=== PATIENT | male | born 1950 | race Caucasian/White ===

== ENCOUNTER 2023-10-03 12:45 | Outpatient (OUT) | payer MEDICARE, SELFPAY ==
[2023-10-03 13:32] LABS: Basophils Absolute Auto 0.1 10^3/uL (0.0-0.1); Basophils Percent Auto 0.6 % (0.2-2.0); Eosinophils Absolute Auto 0.2 10^3/uL (0.0-0.7); Eosinophils Percent Auto 2.6 % (0.9-7.0); Hematocrit 43.8 % (42.0-54.0); Hemoglobin 13.7 g/dL (14.0-18.0); Immature Granulocytes Abs Auto 0.06 10^3/uL (0.00-0.03); Immature Granulocytes Pct Auto 0.7 % (0.0-0.5); Lymphocytes Percent Auto 22.7 % (20.5-60.0); Mean Corpuscular HGB Conc 31.3 g/dL (29.9-35.2); Mean Corpuscular Hemoglobin 27.9 pg (25.9-34.0); Mean Corpuscular Volume 89.2 fL (80.0-94.0); Mean Platelet Volume 9.9 fL (9.5-13.5); Monocytes Absolute Auto 1.1 10^3/uL (0.3-0.8); Neutrophils Absolute Auto 5.5 10^3/uL (1.4-6.5); Neutrophils Percent Auto 61.4 % (43.0-75.0); Platelet Count 253 10^3/uL (150-450); Red Blood Count 4.91 10^6/uL (4.70-6.10); Red Cell Distribution Width 14.4 % (11.0-15.0); White Blood Count 8.9 10^3/uL (4.0-11.0)
[2023-10-03 13:36] LABS: Microalbumin Urine Random <1.3 mg/dL (<=30.0)
[2023-10-03 14:09] LABS: Alanine Aminotransferase 43 U/L (16-63); Albumin Globulin Ratio 0.9; Albumin Level 3.4 g/dL (3.4-5.0); Alkaline Phosphatase 66 U/L (46-116); Anion Gap 9.5; Aspartate Amino Transferase 30 U/L (15-37); BUN Creatinine Ratio 8.3; Bilirubin Direct 0.1 mg/dL (0.0-0.2); Bilirubin Total 0.3 mg/dL (0.2-1.0); Calcium 9.3 mg/dL (8.5-10.1); Carbon Dioxide 32.5 mmol/L (21.0-32.0); Chloride 101 mmol/L (98-107); Chol HDL Ratio 2.8; Cholesterol 141 mg/dL (<=200); Estimated GFR (African America >60 (>=60); Estimated GFR (Non-African Ame >60 (>=60); Glucose 117 mg/dL (74-106); HDL Cholesterol 50 mg/dL (40-60); LDL Cholesterol Calculated 67.8 mg/dL; Sodium 139 mmol/L (136-145); Thyroid Stimulating Hormone 0.787 uIU/mL (0.358-3.740); Total Protein 7.4 g/dL (6.4-8.2); Triglycerides 116 mg/dL (<=150); VLDL CHOLESTEROL 23.2 mg/dL
[2023-10-03 14:14] LABS: Prostate Specific Antigen Scrn 3.11 ng/mL (<=4.00)
[2023-10-03 14:20] LABS: Estimated Average Glucose 169 mg/dL; Glycohemoglobin A1C 7.5 % (4.5-6.2)
== END 2023-10-03 12:46 | disposition home or self-care (01) ==
PROVIDERS: PCP Family Medicine; Visit Provider Family Medicine
DX: E11.9 Type 2 diabetes mellitus without complications (principal); I10 Essential (primary) hypertension; Z51.81 Encounter for therapeutic drug level monitoring; E66.01 Morbid (severe) obesity due to excess calories; E78.5 Hyperlipidemia, unspecified; Z12.5 Encounter for screening for malignant neoplasm of prostate
CPT/HCPCS: 36415; 80048; 80061; 80076; 82043; 83036; 84443; 85025; G0103

== ENCOUNTER 2024-06-19 13:48 | Outpatient (OUT) | payer MEDICARE, SELFPAY ==
--- OUTSIDE RECORDS SUMMARY | 2024-06-19 14:09 | XMS_ITS | CCD ---
Author Organization [facility] Care Team Providers Care Regional Environmental Manager Name Role Phone MARIE, DR BRITTNI Lew Attending Unavailable NADERER, DR BRITTNI Lew Admitting Unavailable NADERER, DR BRITTNI Lew Primary Care Unavailable NADERER, DR BRITTNI Lew Consulting Unavailable NADERER, DR RBITTNI Lew Admitting Unavailable NADERER, DR BRITTNI Lew Primary Care Unavailable NADERER, DR BRITTNI Lew Consulting Unavailable NADERER, DR BRITTNI Lew Attending Unavailable RUSHER, ROMAN Lew Attending Unavailable RUSHER, ROMAN Lew Attending Unavailable RUSHER, ROMAN Lew Attending Unavailable NADERER, BRITTNI Attending Unavailable RUSHER, ROMAN Lew Attending Unavailable Problems Active Problems Problem Classification Problem Date Documented Da te Episodic/Chronic Diabetes mellitus with complications (4 sources) Type 2 diabetes mellitus with hyperglycemia; Translations: [TYPE 2 DM W/HYPERGLYCEMIA] Onset: 09-23-2022 Chronic Disorders of lipid metabolism (1 source) Hyperlipidemia, unspecified; Translations: [HYPERLIPIDEMIA UNSPECIFIED] Onset: 10-15-2021 Chronic Essential hypertension (1 source) Essential (primary) hypertension; Translations: [ESSENTIAL PRIMARY HYPERTENSION] Onset: 10-15-2021 Chronic Past or Other Problems Problem Classification Problem Date Documented Da te Episodic/Chronic Other aftercare (1 source) 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; Translations: [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 DEVELOPER CURRENT DRUG THERAPY] Onset: 10-15-2021 Episodic Other screening for suspected conditions (not mental disorders or infectious disease) (1 source) Encounter for screening for malignant neoplasm of prostate; Translations: [ENC SCREEN MALIG NEOPLASM PROSTATE] Onset: 10-15-2021 Episodic Results Test Name Value Interpretation Reference Range Facility GLYCOHEMOGLOBIN A1Con 2022 ADA RECOMMENDATION SEE BELOW Normal [facility] Comment on above: Result Comment: ADA RECOMMENDED LIMIT 4.0 - 6.0 ADA THERAPEUTIC TARGET < 7.0 ACTION SUGGESTED > 7.0 Performed By: #### A 1C #### [facility] [address] [place] [address] Dr. Estephanie Serrano Glucose [Mass/Vol] 148 mg/dL Normal [facility] Comment on above: Performed By: #### A 1C #### [facility] [address] [place] [address] Dr. Estephanie Serrano HbA1c (Bld) [Mass fraction] 6.8 % Critically high 4.5-6.2 [facility] Comment on above: Performed By: #### A 1C #### [facility] [address] [place] [address] Dr. Estephanie Serrano CBC AUTO DIFFon 10-13-2021 BASO # 0.0 103/ul Normal 0.0-0.1 [facility] Comment on above: Performed By: #### C BC #### [facility] [address] [place] [address] Dr. Estephanie Serrano Basophils/100 WBC (Bld) 0.4 % Normal 0.2-2.0 [facility] Comment on above: Performed By: #### C BC #### [facility] [address] [place] [address] Dr. Estephanie Serrano EO # 0.2 103/ul Normal 0.0-0.7 [facility] Comment on above: Performed By: #### C BC #### [facility] [address] [place] [address] Dr. Estephanie Serrano Eosinophils/100 WBC (Bld) 2.9 % Normal 0.9-7.0 [facility] Comment on above: Performed By: #### C BC #### [facility] [address] [place] [address] Dr. Estephanie Serrano Erythrocyte distribution width (RBC) [Ratio] 14.3 % Normal 11.0-15.0 [facility] Comment on above: Performed By: #### C BC #### [facility] [address] [place] [address] Dr. Estephanie Serrano Hematocrit (Bld) [Volume fraction] 44.8 % Normal 42.0-54.0 [facility] Comment on above: Performed By: #### C BC #### [facility] [address] [address] [address] Estephanie Serrano Hemoglobin (Bld) [Mass/Vol] 14.0 g/dL Normal 14.0-18.0 [facility] Comment on above: Performed By: #### C BC #### [facility] [address] [place] [address] Dr. Estephanie Serrano IG # 0.04 10e3/ul Critically high 0.00-0.03 [facility] Comment on above: Performed By: #### C BC #### [facility] [address] [place] [address] Dr. Estephanie Serrano IG % 0.6 % Critically high 0.0-0.5 [facility] Comment on above: Performed By: #### C BC #### [facility] [address] [place] [address] Dr. Estephanie Serrano LYMPH # 1.8 103/ul Normal 1.2-3.8 [facility] Comment on above: Performed By: #### C BC #### [facility] [address] [place] [address] Dr. Estephanie Serrano Lymphocytes/100 WBC (Bld) 26.4 % Normal 20.5-60.0 [facility] Comment on above: Performed By: #### C BC #### [facility] [address] [place] [address] Dr. Estephanie Serrano MANUAL DIFF REQ NO Normal [facility] Comment on above: Performed By: #### C BC #### [facility] [address] [place] [address] Dr. Estephanie Serrano MCH (RBC) [Entitic mass] 28.5 pg Normal 25.9-34.0 [facility] Comment on above: Performed By: #### C BC #### [facility] [address] [place] [address] Dr. Estephanie Serrano MCHC (RBC) [Mass/Vol] 31.3 g/dL Normal 29.9-35.2 [facility] Comment on above: Performed By: #### C BC #### [facility] [address] [address] [address] Estephanie Serrano MCV (RBC) [Entitic vol] 91.1 fL Normal 80.0-94.0 [facility] Comment on above: Performed By: #### C BC #### [facility] [address] [address] [address] Estephanie Serrano MONO # 0.8 103/ul Normal 0.3-0.8 [facility] Comment on above: Performed By: #### C BC #### [facility] [address] [address] [address] Estephanie Serrano Monocytes/100 WBC (Bld) 10.8 % Normal 1.7-12.0 [facility] Comment on above: Performed By: #### C BC #### [facility] [address] [place] [address] Dr. Estephanie Serrano NEUT # 4.1 103/ul Normal 1.4-6.5 [facility] Comment on above: Performed By: #### C BC #### [facility] [address] [place] [address] Dr. Estephanie Serrano Neutrophils/100 WBC (Bld) 58.9 % Normal 43.0-75.0 [facility] Comment on above: Performed By: #### C BC #### [facility] [address] [place] [address] Dr. Estephanie Serrano Platelet mean volume (Bld) [Entitic vol] 11.8 fL Normal 9.5-13.5 [facility] Comment on above: Performed By: #### C BC #### [facility] [address] [place] [address] Dr. Estephanie Serrano PLT 218 103/ul Normal 150-450 [facility] Comment on above: Performed By: #### C BC #### [facility] [address] [place] [address] Dr. Estephanie Serrano RBC 4.92 106/ul Normal 4.70-6.10 [facility] Comment on above: Performed By: #### C BC #### [facility] [address] [place] [address] Dr. Estehpanie Serrano WBC 7.0 103/ul Normal 4.0-11.0 [facility] Comment on above: Performed By: #### C BC #### [facility] [address] [address] [address] Estephanie Serrano GLYCOHEMOGLOBIN A1Con 2021 ADA RECOMMENDATION ADA THERAPEUTIC TARGET 6.0 - 7.0 ACTION SUGGESTED > 7.0 Normal [facility] Comment on above: Performed By: #### A 1C #### [facility] [address] [address] [address] Estephanie Serrano Glucose [Mass/Vol] 169 mg/dL Normal [facility] Comment on above: Performed By: #### A 1C #### [facility] [address] [address] [address] Estephanie Serrano HbA1c (Bld) [Mass fraction] 7.5 % Critically high <=6.0 [facility] Comment on above: Performed By: #### A 1C #### [facility] [address] [address] [address] Estephanie Serrano LIPID PROFILEon 10-13-2021 CHOL-HDL RATIO NORM SEE BELOW Normal [facility] Comment on above: Result Comment: 3.3 - 4.4 LOW RISK 4.4 - 7.1 AVERAGE RISK 7.1 - 11.0 MODERATE RISK >11.0 HIGH RISK Performed By: #### L IPID, TSH, LIVER, BMP #### [facility] [address] [address] [address] Estephanie Serrano Cholesterol [Mass/Vol] 124 mg/dL Normal <=200 [facility] Comment on above: Performed By: #### L IPID, TSH, LIVER, BMP #### [facility] [address] [address] [address] Estephanie Serrano Cholesterol in HDL [Mass/Vol] 37 mg/dL Normal [facility] Comment on above: Performed By: #### L IPID, TSH, LIVER, BMP #### [facility] [address] [address] [address] Estephanie Serrano Cholesterol in LDL [Mass/Vol] 61.0 mg/dL Normal [facility] Comment on above: Performed By: #### L IPID, TSH, LIVER, BMP #### [facility] [address] [place] [address] Dr. Estephanie Serrano Cholesterol.total/Ch olesterol in HDL [Mass ratio] 3.4 {ratio} Normal [facility] Comment on above: Performed By: #### L IPID, TSH, LIVER, BMP #### [facility] [address] [address] [address] Estephanie Serrano HDL NORMAL > or = 60 mg/dl - LOW CARDIOVASCULAR RISK <40 mg/dl - HIGH CARDIOVASCULAR RISK Normal [facility] Comment on above: Performed By: #### L IPID, TSH, LIVER, BMP #### [facility] [address] [place] [address] Dr. Estephanie Serrano LDL CALC NORMAL SEE BELOW Normal [facility] Comment on above: Result Comment: <100 mg/dl OPTIMAL 100 - 129 mg/dl NEAR OR ABOVE OPTIMAL 130 - 159 mg/dl BORDERLINE HIGH 160 - 189 mg/dl HIGH >190 mg/dl VERY HIGH Performed By: #### L IPID, TSH, LIVER, BMP #### [facility] [address] [place] [address] Dr. Estephanie Serrano Triglyceride [Mass/Vol] 130 mg/dL Normal <=150 [facility] Comment on above: Performed By: #### L IPID, TSH, LIVER, BMP #### [facility] [address] [place] [address] Dr. Estephanie Serrano VLDL CALC 26.0 mg/dL Normal [facility] Comment on above: Performed By: #### L IPID, TSH, LIVER, BMP #### [facility] [address] [address] [address] Estephanie Serrano LIVER PROFILEon 10-13-2021 Albumin [Mass/Vol] 3.6 g/dL Normal 3.5-5.0 [facility] Comment on above: Performed By: #### L IPID, TSH, LIVER, BMP #### [facility] [address] [place] [address] Dr. Estephanie Serrano Albumin/Globulin [Mass ratio] 1.0 {ratio} Normal [facility] Comment on above: Performed By: #### L IPID, TSH, LIVER, BMP #### [facility] [address] [address] [address] Estephanie Serrano ALP [Catalytic activity/Vol] 67 U/L Normal 38-126 [facility] Comment on above: Performed By: #### L IPID, TSH, LIVER, BMP #### [facility] [address] [address] [address] Estephanie Serrano ALT [Catalytic activity/Vol] 36 U/L Normal 21-72 [facility] Comment on above: Performed By: #### L IPID, TSH, LIVER, BMP #### [facility] [address] [place] [address] Dr. Estephanie Serrano AST [Catalytic activity/Vol] 30 U/L Normal 17-59 [facility] Comment on above: Performed By: #### L IPID, TSH, LIVER, BMP #### [facility] [address] [place] [address] Dr. Estephanie Serrano BILI, CONJUGATED 0.1 mg/dL Normal 0.0-0.3 [facility] Comment on above: Performed By: #### L IPID, TSH, LIVER, BMP #### [facility] [address] [place] [address] Dr. Estephanie Serrano Bilirubin [Mass/Vol] 0.4 mg/dL Normal 0.2-1.3 [facility] Comment on above: Performed By: #### L IPID, TSH, LIVER, BMP #### [facility] [address] [place] [address] Dr. Estephanie Serrano Globulin (S) [Mass/Vol] 3.5 g/dL Normal [facility] Comment on above: Performed By: #### L IPID, TSH, LIVER, BMP #### [facility] [address] [place] [address] Dr. Estepahnie Serrano Protein [Mass/Vol] 7.1 g/dL Normal 6.1-8.2 [facility] Comment on above: Performed By: #### L IPID, TSH, LIVER, BMP #### [facility] [address] [place] [address] Dr. Estephanie Serrano MICROALBUMIN, RAND URon 02-0 mALB 1.6 mg/L Normal <=30.0 [facility] Comment on above: Performed By: #### M ALBR #### [facility] [address] [address] [address] Estephanie Serrano PROF CHEM 8 (BAS METB)on Anion gap [Moles/Vol] 11.2 mmol/L Normal [facility] Comment on above: Performed By: #### L IPID, TSH, LIVER, BMP #### [facility] [address] [place] [address] Dr. Estephanie Serrano Calcium [Mass/Vol] 9.1 mg/dL Normal 8.4-10.2 [facility] Comment on above: Performed By: #### L IPID, TSH, LIVER, BMP #### [facility] [address] [place] [address] Dr. Estephanie Serrano Chloride [Moles/Vol] 99 mmol/L Normal 98-107 [facility] Comment on above: Performed By: #### L IPID, TSH, LIVER, BMP #### [facility] [address] [place] [address] Dr. Estephanie Serrano CO2 [Moles/Vol] 29.9 mmol/L Normal 22.0-30.0 [facility] Comment on above: Performed By: #### L IPID, TSH, LIVER, BMP #### [facility] [address] [place] [address] Dr. Estephanie Serrano Creatinine [Mass/Vol] 0.83 mg/dL Normal 0.66-1.25 [facility] Comment on above: Performed By: #### L IPID, TSH, LIVER, BMP #### [facility] [address] [place] [address] Dr. Estephanie Serrano EGFR-AF RWANDAN >60 Normal >=60 [facility] Comment on above: Performed By: #### L IPID, TSH, LIVER, BMP #### [facility] [address] [address] [address] Estephanie Serrano EGFR-NON AF RWANDAN >60 Normal >=60 [facility] Comment on above: Performed By: #### L IPID, TSH, LIVER, BMP #### [facility] [address] [address] [address] Estephanie Serrano Glucose [Mass/Vol] 219 mg/dL Critically high 74-106 [facility] Comment on above: Performed By: #### L IPID, TSH, LIVER, BMP #### [facility] [address] [address] [address] Estephanie Serrano Potassium [Moles/Vol] 4.1 mmol/L Normal 3.4-5.0 [facility] Comment on above: Performed By: #### L IPID, TSH, LIVER, BMP #### [facility] [address] [place] [address] Dr. Estephanie Serrano Sodium [Moles/Vol] 136 mmol/L Critically low 137-145 [facility] Comment on above: Performed By: #### L IPID, TSH, LIVER, BMP #### [facility] [address] [address] [address] Estephanie Serrano Urea nitrogen [Mass/Vol] 6.0 mg/dL Critically low 9.0-20.0 [facility] Comment on above: Performed By: #### L IPID, TSH, LIVER, BMP #### [facility] [address] [place] [address] Dr. Estephanie Serrano Urea nitrogen/Creatinine [Mass ratio] 7.2 mg/mg Normal [facility] Comment on above: Performed By: #### L IPID, TSH, LIVER, BMP #### [facility] [address] [place] [address] Dr. Estephanie Serrano TSHon 10-13-2021 TSH 1.390 uIU/mL Normal 0.470-4.680 [facility] Comment on above: Performed By: #### L IPID, TSH, LIVER, BMP #### [facility] [address] [place] [address] Dr. Estephanie Serrano TSH RANGE SEE BELOW Normal [facility] Comment on above: Result Comment: <0.3 4 UIU/ml HYPERTHYROID 0.34-5.60 UIU/ml EUTHYROID >5.60 UIU/ml HYPOTHYROID Performed By: #### L IPID, TSH, LIVER, BMP #### [facility] [address] [place] [address] Dr. Estephanie eSrrano Basic Metabolic Panelon 11-0 Calcium [Mass/Vol] 8.8 mg/dL Normal 8.2-10.2 [facility] Comment on above: Performed By: #### C BC, BMP, HS TROP #### [facility] [address] [place] [address] [place] Chloride [Moles/Vol] 100 mmol/L Normal 95-114 [facility] Comment on above: Performed By: #### C BC, BMP, HS TROP #### [facility] [address] [place] [address] [place] CO2 [Moles/Vol] 25.8 mmol/L Normal 22.0-30.0 [facility] Comment on above: Performed By: #### C BC, BMP, HS TROP #### [facility] [address] [place] [address] [place] Creatinine [Mass/Vol] 0.74 mg/dL Normal 0.64-1.27 [facility] Comment on above: Performed By: #### C BC, BMP, HS TROP #### [facility] [address] [place] [address] [place] Creatinine Clr Calc Pharmacy 120.85 Normal [facility] Comment on above: Result Comment: PERF ORMED BY: [place] [address] PATHOLOGIST PRINTING AGENT DRU DEVINE M.D. Performed By: #### C BC, BMP, HS TROP #### [facility] [address] [place] [address] [place] Estimated GFR ( Diann > 60 Normal [facility] Comment on above: Result Comment: GFR estimated reference range: According to KDOQI guidelines, <60 ml/min/1.73m2 is sufficient to diagnose a patient with chronic kidney disease. Performed By: #### C BC, BMP, HS TROP #### [facility] [address] Estimated GFR (Non- Am > 60 Normal [facility] Comment on above: Performed By: #### C BC, BMP, HS TROP #### [facility] [address] Glucose [Mass/Vol] 148 mg/dL High 70-100 [facility] Comment on above: Result Comment: [facility] Glucose Reference Range is dependent on time and content of last meal. Glucose of more than 200 mg/dL in a nonstressed, ambulatory subject supports the diagnosis of Diabetes Mellitus. ADA recommended reference range Performed By: #### C BC, BMP, HS TROP #### [facility] [address] Potassium [Moles/Vol] 3.5 mmol/L Normal 3.5-5.1 [facility] Comment on above: Performed By: #### C BC, BMP, HS TROP #### [facility] [address] Sodium [Moles/Vol] 136 mmol/L Normal 136-146 [facility] Comment on above: Performed By: #### C BC, BMP, HS TROP #### [facility] [address] Urea nitrogen [Mass/Vol] 5 mg/dL Low 9-23 [facility] Comment on above: Performed By: #### C BC, BMP, HS TROP #### [facility] [address] COVID-19 Antigenon 1 COVID-19 Antigen Results called at 2104 on 07/13/21 Healthcare Worker?: N Delia Reference Delia Reference Negative Delia Blank COVID19 Pos Results Positive results will only be called to COVID19 Det Results Providers for the following groups of patients: COVID19 Pos Results Pre-Surgical Testing, Emergency Room, and Inpatients. Delia Blank SARS-CoV+SARS-CoV-2 (COVID-19) Ag [Presence] in Respiratory specimen by Rapid immunoassay Positive for SARS Antigen by JESSIE Delia Disclaimer The Delia SARS Antigen JESSIE does not differentiate Delia Disclaimer between SARS-CoV and SARS-CoV-2. COVID19 Blank Space Delia Disclaimer This test was developed and its performance Delia Disclaimer characteristic determined by [employer] and Delia Disclaimer validated at [facility]. This Delia Disclaimer test has not been FDA cleared or approved. This Delia Disclaimer test has been authorized by FDA under an Emergency Use Delia Disclaimer Authorization (EUA). This test has been validated Delia Disclaimer in accordance with the FDA's Guidance Document (Policy Delia Disclaimer for Diagnostics Testing in Laboratories Certified to Delia Disclaimer Perform High Complexity Testing under CLIA prior to Delia Disclaimer Emergency Use Authorization for Coronavirus Delia Disclaimer during the Public Health Emergency) Delia Disclaimer issued on December 13, 2019. This test is only authorized Delia Disclaimer for the duration of time the declaration that Delia Disclaimer circumstances exist justifying the authorization of Delia Disclaimer the emergency use of in vitro diagnostic tests for Delia Disclaimer detection of SARS-CoV-2 virus and/or diagnosis of Delia Disclaimer COVID-19 infection under section 564(b)(1) of the Delia Disclaimer Act, 21 U.S.C. 360bbb-3(b)(1), unless the Delia Disclaimer authorization is terminated or revoked sooner. PERFORMED BY: [place] [address] PATHOLOGIST PRINTING AGENT DRU DEVINE M.D. Normal [facility] Comment on above: Performed By: #### S EMERSON CHURCHID-19 DELIA #### [address] Complete Blood Count Auto Di ffon 07-13-2021 Basophils (Bld) [#/Vol] 0.0 10*3/uL Normal 0.0-0.2 [facility] Comment on above: Result Comment: PERF ORMED BY: [place] [address] PATHOLOGIST PRINTING AGENT DRU DEVINE M.D. Performed By: #### C BC, BMP, HS TROP #### [address] Basophils/100 WBC (Bld) 0.6 % Normal . [facility] Comment on above: Performed By: #### C BC, BMP, HS TROP #### [facility] [address] [place] [address] Eosinophils (Bld) [#/Vol] 0.1 10*3/uL Normal 0.0-0.45 [facility] Comment on above: Performed By: #### C BC, BMP, HS TROP #### [address] Eosinophils/100 WBC (Bld) 0.8 % Normal . [facility] Comment on above: Performed By: #### C BC, BMP, HS TROP #### [facility] [address] [place] [address] Erythrocyte distribution width (RBC) [Ratio] 14.5 % Normal 12.0-14.8 [facility] Comment on above: Performed By: #### C BC, BMP, HS TROP #### [facility] [address] [place] [address] Hematocrit (Bld) [Volume fraction] 42.0 % Normal 38.8-50.0 [facility] Comment on above: Performed By: #### C BC, BMP, HS TROP #### [facility] [address] [place] [address] [place] Hemoglobin (Bld) [Mass/Vol] 14.0 g/dL Normal 13.0-17.0 [facility] Comment on above: Performed By: #### C BC, BMP, HS TROP #### [facility] [address] Lymphocytes (Bld) [#/Vol] 0.7 10*3/uL Low 1.00-4.8 [facility] Comment on above: Performed By: #### C BC, BMP, HS TROP #### [facility] [address] Lymphocytes/100 WBC (Bld) 9.9 % Normal . [facility] Comment on above: Performed By: #### C BC, BMP, HS TROP #### [facility] [address] [place] [address] [place] MCH (RBC) [Entitic mass] 28.7 pg Normal 27.5-35.2 [facility] Comment on above: Performed By: #### C BC, BMP, HS TROP #### [facility] [address] [place] [address] [place] MCV (RBC) [Entitic vol] 86.0 fL Normal 83.5-101 [facility] Comment on above: Performed By: #### C BC, BMP, HS TROP #### [facility] [address] Mean Corpuscular HGB Conc 33.4 g/dL Normal 32.5-35.6 [facility] Comment on above: Performed By: #### C BC, BMP, HS TROP #### [facility] [address] [place] [address] [place] Monocytes (Bld) [#/Vol] 1.1 10*3/uL High 0.0-0.8 [facility] Comment on above: Performed By: #### C BC, BMP, HS TROP #### [facility] [address] [place] [address] [place] Monocytes/100 WBC (Bld) 16.1 % Normal . [facility] Comment on above: Performed By: #### C BC, BMP, HS TROP #### [facility] [address] [place] [address] [place] Neutrophils (Bld) [#/Vol] 5.0 10*3/uL Normal 1.8-7.7 [facility] Comment on above: Performed By: #### C BC, BMP, HS TROP #### [facility] [address] Neutrophils/100 WBC (Bld) 72.6 % Normal . [facility] Comment on above: Performed By: #### C BC, BMP, HS TROP #### [facility] [address] [place] [address] [place] Nucleated RBC/100 WBC (Bld) [Ratio] 0.1 % Normal 0-0.5 [facility] Comment on above: Performed By: #### C BC, BMP, HS TROP #### [facility] [address] [place] [address] Platelet mean volume (Bld) [Entitic vol] 9.0 fL Normal 6.6-10.1 [facility] Comment on above: Performed By: #### C BC, BMP, HS TROP #### [facility] [address] [place] [address] [place] Platelets (Bld) [#/Vol] 157 10*3/uL Normal 150-450 [facility] Comment on above: Performed By: #### C BC, BMP, HS TROP #### [facility] [address] [place] [address] [place] RBC (Bld) [#/Vol] 4.88 10*6/uL Normal 3.90-5.60 [facility] Comment on above: Performed By: #### C BC, BMP, HS TROP #### [facility] [address] [place] [address] [place] WBC (Bld) [#/Vol] 6.9 10*3/uL Normal 4.5-11.0 [facility] Comment on above: Performed By: #### C BC, BMP, HS TROP #### [facility] [address] [place], [place] [id number] [facility] D-Dimer High Sensitivityon 1 09-12-2020 D-Dimer High Sensitivity < 200 Normal 0-243 [facility] Comment on above: Result Comment: The reference range for D-dimer is <243 ng/mL D-dimer units. D-dimer results must be used in conjunction with a clinical pretest probability (PTP) assessment model for deep vein thrombosis (DVT) and pulmonary embolism (PE). Results <230 ng/mL d-dimer units can be used as a negative predictor in patients with low or moderate probability for DVT/PE. Results above the exclusion threshold of 230 ng/ml D-dimer units for DVT/PE may indicate the need for further diagnostic testing. D-Dimer can be increased in hospitalized patients due to co-morbid conditions. PERFORMED BY: [place] [address] PATHOLOGIST [employer] DRU DEVINE M.D. Performed By: #### D DIMER #### [place] [id number] [facility] ECG 12 lead ECGon 07-13-2021 ECG 12 lead ECG [facility] [address] [place] [address] Electrocardiograph Report Signed Patient: Mohit Arboleda MR#: [id number] : 1950 Acct:[id number] Age/Sex: 70 / M ADM Date: 07/13/21 Loc: ER Room: Type: [facility] ER Attending Dr: Ordering Provider: Francisco Jerez DO Date of Service: 07/13/2110/02/2013 ECG/ECG 12 lead ECG: Shortness of Breath/Dyspnea Copies to: Test Reason : Blood Pressure : 133/073 mmHG Vent. Rate : 119 BPM Atrial Rate : 119 BPM P-R Int : 152 ms QRS Dur : 084 ms QT Int : 326 ms P-R-T Axes : 059 072 060 degrees QTc Int : 458 ms Sinus tachycardia Low voltage QRS Confirmed by Francisco Jerez DO ([id number]) on 07/13/2021 10:18:29 PM Referred By: Electronically Signed By:Francisco Jerez DO Transcribed By: MUS Signed By Francisco Jerez DO 07/13 2218 Normal [facility] Delia Ag Positiveon 07-13-20 21 Delia Ag Positive Positive Critically abnormal Negative [facility] Comment on above: Result Comment: This is a duplicate Delia SARS Antigen (JESSIE) result to be used for statistical tracking purpose only. PERFORMED BY: [place] [address] PATHOLOGIST [employer] DRU DEVINE M.D. Performed By: #### S OFIAPOS, COVID-19 DELIA #### [address] Troponin I High Sensitivityo n 07-13-2021 Troponin I High Sensitivity 5 pg/mL Normal 0-20 [facility] Comment on above: Result Comment: PERF ORMED BY: [place] [address] PATHOLOGIST [employer] DRU DEVINE M.D. Performed By: #### C BC, BMP, HS TROP #### [place] [id number] [facility] XR chest 1V portableon 07-13 XR chest 1V portable [facility] [address] [place] [address] XRay Report Signed Patient: Mohit Arboleda MR#: [id number] : 1950 Acct:[id number] Age/Sex: 70 / M ADM Date: 07/13/21 Loc: ER Room: Type: [facility] ER Attending Dr: Ordering Provider: Francisco Jerez DO Date of Service: 07/13/21 XR/XR chest 1V portable: Shortness of Breath/Dyspnea Copies to: Francisco Jerez DO Chest 07/13/2021. CLINICAL DATA: Shortness of breath. FINDINGS: A single portable frontal view of the chest was obtained. No prior study is available for comparison. The cardiac silhouette is normal in size. The pulmonary vasculature is within normal limits. The lungs demonstrate mild chronic-appearing interstitial changes. No pulmonary consolidation or collapse is identified. No pneumothorax or pleural effusion is seen. XR/XR chest 1V portable IMPRESSION: Mild chronic-appearing interstitial changes. No acute cardiopulmonary disease. Impression dictated by: Elver Acosta Jr., M.D.07/13/2021 9:38 PM Dictation Location: [place] [address] Transcribed By: [facility] 07/13/212137 Dictated By: Elver Acosta Jr, MD 07/13/212136 Signed By: 07/13/212137 [facility] Encounters Encounter Date Encounter Type Care Provider Facility Start: 05-29-2024 End: 05-29-2024 ambulatory ROMAN KUMAR Not Available Start: 05-16-2024 End: 05-16-2024 ambulatory BRITTNI SALAZAR Not Available Start: 02-20-2024 End: 02-20-2024 ambulatory ROMAN Lew RUSHER Not Available Start: 11-10-2023 End: 11-10-2023 ambulatory ROMAN Lew RUSHER Not Available Start: 08-03-2023 End: 08-03-2023 ambulatory ROMAN Lew RUSHER Not Available Start: 09-23-2022 End: 09-24-[address] BRITTNI SALAZAR Facility:[facility] Start: 10-13-2021 End: 10-14-[address] BRITTNI SALAZAR Facility:[facility] Procedures Date Procedure Procedure Detail Performing Clinician Start: 10-13-[address] BRITTNI HARKINS Comment on above: Performed By: #### P [facility] #### [facility] [address] [place] [address] Dr. Estephanie Serrano Payers Date Payer Category Payer Unknown [id number] 1950 Unknown [id number] 2.16.84 [id number] 1950 Unknown [id number] 2.16.84 [id number] 1950 Unknown [id number] 2.16.84 [id number] 1950 Unknown [id number] 2.16.84 [id number] 1950 Unknown [id number] 2.16.84 [id number] 1950 Unknown [id number] 2.16.84 [id number] 1950 Unknown [id number] Summary Purpose Family History No Family History Records FoundNo Family History Records FoundNo Family History Records Found Advance Directives No Advanced Directives Records FoundNo Advanced Directives Records FoundNo Advanced Directives Records Found Additional Source Comments (unrecognized sect ion and content) No Status Records FoundNo Status Records FoundNo Status Records Found INFORMATION SOURCE (unrecogn ized section and content) DATE CREATED AUTHOR 10/06/2021 [facility] DATE CREATED AUTHOR AUTHOR'S ORGANIZ ATION 10/05/2022 [facility] DATE CREATED AUTHOR AUTHOR'S ORGANIZ ATION 05/31/2024 [facility] FOR RECORDS PERTAINING TO PATIENTS WHO ARE OR HAVE BEEN ENROLLED IN A CHEMICAL DEPENDENCY/SUBSTANCEABUSE PROGRAM, SOME INFORMATION MAY BE OMITTED. This clinical summary was aggregated from multiple sources. Caution should be exercised in using it in the provision of clinical care. This summary normalizes information from multiple sources, and as a consequence, information in this document may materially change the coding, format and clinical context of patient data. In addition, data may be omitted in some cases. CLINICAL DECISIONS SHOULD BE BASED ON THE PRIMARY CLINICAL RECORDS. [facility] [employer] [facility]. provides no warranty or guarantee of the accuracy or completeness of information in this document.
[2024-06-19 14:47] LABS: Estimated Average Glucose 186 mg/dL; Glycohemoglobin A1C 8.1 % (4.5-6.2)
== END 2024-06-19 13:49 | disposition home or self-care (01) ==
LOC: LAB 13:49
PROVIDERS: PCP Family Medicine; Visit Provider Family Medicine
DX: E11.65 Type 2 diabetes mellitus with hyperglycemia (principal)
CPT/HCPCS: 36415; 83036

== ENCOUNTER 2025-05-10 08:32 | Outpatient (OUT) | payer MEDICARE, SELFPAY ==
--- OUTSIDE RECORDS SUMMARY | 2025-05-10 08:37 | XMS_ITS | CCD ---
Author Organization [facility] Care Team Providers Care [employer] Programmer Name Role Phone DR LJ SALAZAR Attending Unavailable NADERER, DR LJ Lew Admitting Unavailable NADERER, DR LJ Lew Primary Care Unavailable MARIE, DR LJ Lew Consulting Unavailable NADERER, DR LJ Lew Admitting Unavailable NADERER, DR LJ Lew Primary Care Unavailable MARIE, DR LJ Lew Consulting Unavailable MARIE, DR LJ Lew Attending Unavailable Lj Salazar MD Primary Care Provider [phone] MARKELL BAILON Attending Unavailable MARIE, LJ Referring Unavailable MARIE, LJ Primary Care Unavailable Lj Salazar MD Unavailable Lj Salazar MD Primary Care Provider [phone] FABY DRAPER Admitting Unavailable FABY DRAPER Attending Unavailable MARIE, LJ Primary Care Unavailable ARCENIO PEÑALOZA Attending Unavailable NADERER, LJ Attending Unavailable NADERER, LJ Attending Unavailable RUSARCENIO PEREYRA Attending Unavailable NADERER, LJ Attending Unavailable RUSHER, ARCENIO Lew Attending Unavailable RUSHERARCENOI Attending Unavailable Medications Current Medications Medication Drug Class(es) Dates Sig (Normalized) Sig (Original) [id number] 200 actuat albuterol 0.09 mg/actuat metered dose inhaler (20 sources) beta2-Adrenergic Agonist take 2 puff(s) by inhalation every four hours for wheezing albuterol HFA 90 mcg/act inhaler Inhale 2 puffs every 4 (four) hours if needed for wheezing Active glipiZIDE 10 mg oral tablet (20 sources) Sulfonylurea Start: 04-24-2024 take 1 tablet by mouth twice daily glipiZIDE (Glucotrol) 10 MG tablet Indications: Type 2 diabetes mellitus with hyperglycemia, without long-term current use of insulin (HCC) TAKE 1 TABLET BY MOUTH TWICE DAILY 180 tablet 3 04/24/2024 Active lisinopril 20 mg oral tablet (20 sources) Angiotensin Converting Enzyme Inhibitor Start: 04-24-2024 take 1 tablet by mouth once daily lisinopril 20 MG tablet Indications: Benign essential hypertension TAKE 1 TABLET BY MOUTH DAILY 90 tablet 3 04/24/2024 Active 24 hr metFORMIN hydrochloride 500 mg extended release oral tablet (20 sources) Biguanide Start: 04-24-2024 take 2 tablets by mouth twice daily metFORMIN XR (Glucophage-XR) 500 MG 24 hr tablet Indications: Type 2 diabetes mellitus with hyperglycemia, without long-term current use of insulin (HCC) TAKE 2 TABLETS BY MOUTH TWICE DAILY 360 tablet 3 04/24/2024 Active take 1 tablet by mouth at mealti me metFORMIN (Glucophage) 500 MG tablet Take 500 mg by mouth in the morning. Take with meals. Active omeprazole 40 mg delayed release oral capsule (14 sources) Proton Pump Inhibitor Start: 10-29-2024 End: 10-29-2025 take 1 capsule by mouth in the morning omeprazole (PriLOSEC) [address] capsule Indications: Esophagitis Take 1 capsule (40 mg) by mouth in the morning and 1 capsule (40 mg) in the evening. Take before meals. 180 capsule 3 10/29/2024 10/29/2025 Active Start: 08-23-2024 take 1 capsule by mo uth at bedtime omeprazole (PriLOSEC) 40 mg capsule Take 1 capsule (40 mg total) by mouth in the morning and at bedtime. 60 capsule 1 08/23/2024 Active peg 3350-sod sulf,rbua-mii-yvn 178.7-7.3-0.5 gram recon soln (1 source) Start: 07-30-2024 End: 07-31-2024 peg 3350-sod sulf,ssjt-pdr-tll 178.7-7.3-0.5 gram recon soln Indications: Positive colorectal cancer screening using Cologuard test Take 1 kit by mouth once daily for 1 dose. Please see instructional sheet given by physicians office. 1 each 07/30/2024 07/31/2024 Active pioglitazone 45 mg oral tablet (20 sources) Peroxisome Proliferator Receptor alpha Agonist, Peroxisome Proliferator Receptor gamma Agonist, Thiazolidinedione Start: 06-20-2024 take 1 tablet by mouth once daily pioglitazone (Actos) 45 MG tablet Indications: Type 2 diabetes mellitus with hyperglycemia, without long-term current use of insulin ([facility]) Take 1 tablet (45 mg) by mouth Daily 90 tablet 3 06/20/2024 Active Start: 05-16-2024 take 1 tablet by joce th once daily pioglitazone (Actos) 30 MG tablet Indications: Type 2 diabetes mellitus with hyperglycemia, without long-term current use of insulin (CMS/HCC) Take 1 tablet (30 mg) by mouth Daily 90 tablet 3 05/16/2024 Active Start: 05-16-2024 take 1 tablet by joce th once daily pioglitazone (Actos) 30 MG tablet Indications: Type 2 diabetes mellitus with hyperglycemia, without long-term current use of insulin (CMS/HCC) Take 1 tablet (30 mg) by mouth Daily 90 tablet 3 05/16/2024 Active Start: 10-31-2023 End: 06-20-2024 take 1 tablet by mouth once daily pioglitazone (Actos) 30 MG tablet Indications: Type 2 diabetes mellitus with hyperglycemia, without long-term current use of insulin (CMS/HCC) Take 1 tablet (30 mg) by mouth Daily 90 tablet 3 05/16/2024 06/20/2024 Discontinued (Reorder) simvastatin 20 mg oral tablet (20 sources) HMG-CoA Reductase Inhibitor Start: 04-24-2024 take 1 tablet by mouth at bedtime simvastatin (Zocor) 20 MG tablet Indications: Dyslipidemia TAKE 1 TABLET BY MOUTH AT BEDTIME 90 tablet 3 04/24/2024 Active Problems Active Problems Problem Classification Problem Date Documented Da te Episodic/Chronic Diabetes mellitus with complications (20 sources) Type 2 diabetes mellitus with hyperglycemia; Translations: [Hyperglycemia due to type 2 diabetes mellitus] Onset: 09-23-2022 Chronic Disorders of lipid metabolism (20 sources) Hyperlipidemia, unspecified; Translations: [Dyslipidemia] Onset: 10-15-2021 10-03-2023 Chronic Diverticulosis and diverticulitis (1 source) Diverticulosis of intestine, part unspecified, without perforation or abscess without bleeding; Translations: [Diverticulosis of intestine, part unspecified, without perforation or abscess without bleeding] Onset: 08-23-2024 Chronic Essential hypertension (20 sources) Essential (primary) hypertension; Translations: [Benign essential hypertension] Onset: 10-15-2021 10-03-2023 Chronic Gastritis and duodenitis (1 source) Chronic superficial gastritis without bleeding; Translations: [Chronic superficial gastritis without bleeding] Onset: 08-23-2024 Chronic Gastroduodenal ulcer (except hemorrhage) (1 source) Duodenal ulcer, unspecified as acute or chronic, without hemorrhage or perforation; Translations: [Duodenal ulcer, unspecified as acute or chronic, without hemorrhage or perforation] Onset: 08-23-2024 Chronic Mycoses (4 sources) Onychomycosis due to dermatophyte ; Translations: [Tinea unguium] 05-29-2024 Episodic Other and unspecified benign neoplasm (1 source) Polyp of colon; Translations: [Polyp of colon] Onset: 08-23-2024 Episodic Other connective tissue disease (8 sources) Pain in toe; Translations: [Pain in right toe(s)] 05-29-2024 Episodic Other gastrointestinal disorders (1 source) Other fecal abnormalities; Translations: [Other fecal abnormalities] Onset: 07-30-2024 Episodic Other nutritional; endocrine; and metabolic disorders (18 sources) Morbid obesity; Translations: [Morbid (severe) obesity due to excess calories] Onset: 10-03-2023 05-16-2024 Chronic Other nutritional; endocrine; and metabolic disorders (6 sources) Severe obesity; Translations: [Class 3 severe obesity due to excess calories with serious comorbidity and body mass index (BMI) of 40.0 to 44.9 in adult ([facility])] Onset: 10-03-2023 02-21-2025 Chronic Other skin disorders (4 sources) Dystrophia unguium; Translations: [Nail dystrophy] 05-29-2024 Episodic Residual codes; unclassified (1 source) Family history of malignant neoplasm of digestive organs; Translations: [Family history of malignant neoplasm of digestive organs] Onset: 07-30-2024 Episodic Unclassified (1 source) POSITIVE COLOGUARD Onset: 07-30-2024 Unclassified (1 source) Esophagitis, unspecified without bleeding; Translations: [Esophagitis, unspecified without bleeding] Onset: 08-23-2024 Unclassified (1 source) [positive cologuard Onset: 08-23-2024 Past or Other Problems Problem Classification Problem Date Documented Da te Episodic/Chronic Esophageal disorders (11 sources) Esophagitis; Translations: [Esophagitis] Onset: 08-24-2024 08-24-2024 Episodic Mood disorders (11 sources) Mood disorders Onset: 08-24-2024 08-24-2024 Other aftercare (1 source) Other detention (current) drug therapy; Translations: [OTH SNF CURRENT DRUG THERAPY] Onset: 10-15-2021 Episodic Other aftercare (18 sources) Long-term current use of drug therapy; Translations: [Other box cutter (current) drug therapy] Onset: 10-03-2023 10-03-2023 Episodic Other aftercare (4 sources) Patient encounter status; Translations: [Other detention (current) drug therapy] Onset: 10-03-2023 10-03-2023 Episodic Other diseases of veins and lymphatics (20 sources) Peripheral venous insufficiency; Translations: [Venous insufficiency (chronic) (peripheral)] Onset: 10-03-2023 10-03-2023 Episodic Other gastrointestinal disorders (15 sources) Stool DNA-based colorectal cancer screening positive; Translations: [Other fecal abnormalities] Onset: 06-27-2024 Resolved: 02-21-2025 06-27-2024 Episodic Other screening for suspected conditions (not mental disorders or infectious disease) (20 sources) Encounter for screening for malignant neoplasm of prostate; Translations: [Patient encounter status] Onset: 10-15-2021 10-03-2023 Episodic Residual codes; unclassified (1 source) FH: Stomach cancer; Translations: [Family history of malignant neoplasm of digestive organs] 07-30-2024 Episodic Results Test Name Value Interpretation Reference Range Facility H PYLORI SCREENon 08-23-2024 H. pylori Org specific cx Ql ([place]) Negative Normal NEG [facility] Comment on above: Performed By: #### 4 4015-6 #### [facility] ([id number]) [address] [place] [address], [address] [place] [address] Surgical Pathologyon 024 Surgical Pathology Normal [facility] Comment on above: Result Comment: [facility] [address] [place] [address] Surgical Pathology Consultation Patient Name:MOHIT ARBOLEDA:1950 (Age: 74)Gender:MTaken:4Reported:08/31/2024hysician(s):Porter Draper D.O. ([phone])Copy To: Rec. #:[id number]: #[id number] Final Pathologic Diagnosis 1. Duodenal bulb - biopsy: - Duodenal mucosa with foveolar metaplasia c/w peptic duodenitis (negative for malignancy) 2. Gastric pre-pylorus area - biopsy: - Mild reactive gastropathy (no H. pylori, intestinal metaplasia or neoplasia) 3. Distal esophagus - biopsy: - GEJ mucosa (no Adan's, esophagitis or neoplasia) 4. Sigmoid colon polyp: - Tubular adenoma 5. Proximal transverse colon polyps, x 2: - Tubular adenomas, x 2 6. Distal transverse colon polyp: - Tubular adenoma Report Electronically Signed Out garzon/08/31/2024Jimbo Menchaca MD [place] [address], License number: [id number]. Clinical History Positive Cologuard. 5. Snared polyps x2 in proximal transverse. 6. Snared a polyp. Gross Description 1. Received in formalin labeled, ISAI duodenal bulb BX are 4 pale-chester delicate the friable soft tissue bits, 0.2-0.3 cm in greatest dimension. The specimen is filtered and submitted single cassette. (1, ns, [id number], m1) TB 2. Received in formalin labeled, ISAI prepylorus BX are 3 pale-chester delicate soft tissue bits, 0.2-0.5 cm in greatest dimension. The specimens are filtered and submitted a single cassette. (1, ns, [id number], m1) TB 3. Received in formalin labeled, ISAI, distal esophagus BX are 2 chester delicate soft tissue bits, each 0.3 cm in greatest dimension. The specimens are filtered and submitted single cassette. (1, ns, [id number], m4) TB 4. Received in formalin labeled, ISAI, sigmoid colon polyp is a chester-brown delicate soft tissue polyp, 1.2 cm in greatest dimension. The resection margin is inked black, and the polyp is serially sectioned and submitted in single cassette. (1, ns, [id number], m1) TB 5. Received in formalin labeled, ISAI, proximal transverse polyp are 5 pale-chester delicate soft tissue bits, 0.3-0.4 cm in greatest dimension. The specimens are filtered and submitted in single cassette. (1, ns, [id number], m1) TB 6. Received in formalin labeled, ISAI, distal transverse are 8 chester delicate to friable soft tissue fragments, 0.3-0.7 the specimens are filtered and submitted a single cassette. (1, ns, [id number], m1) TB tgb/08/24/2024NSK Specimen(s) Received 1: Duodenal bulb biopsy 2: Stomach biopsies from pre-pylorus area 3: Distal esophageal biopsies 4: Sigmoid colon polyp 5: Proximal transverse colon polyps x2 6: Distal transverse colon polyp Fee Codes(s): 1; 75455 2; 60647 3; 33786 4; 03822 5; 70901 6; 16504 MLR HEMOGLOBIN A1Con 024 Glucose [Mass/Vol] 186 mg/dL [facility] HbA1c (Bld) [Mass fraction] 8.1 % High 4.5 - 6.2 % [facility] Comment on above: ADA RECOMMENDED LIMI T 4.0 - 6.0 ADA THERAPEUTIC TARGET < 7.0 ACTION SUGGESTED > 7.0 Interpretation and review of laboratory results Abnormal [facility] GLYCOHEMOGLOBIN A1Con 2022 ADA RECOMMENDATION SEE BELOW Normal [facility] Comment on above: Result Comment: ADA RECOMMENDED LIMIT 4.0 - 6.0 ADA THERAPEUTIC TARGET < 7.0 ACTION SUGGESTED > 7.0 Performed By: #### A 1C #### [facility] [address] [address] [address] Estephanie Serrnao Glucose [Mass/Vol] 148 mg/dL Normal [facility] Comment on above: Performed By: #### A 1C #### [facility] [address] [place], [place] [address] Dr. Estephanie Serrano HbA1c (Bld) [Mass fraction] 6.8 % Critically high 4.5-6.2 [facility] Comment on above: Performed By: #### A 1C #### [facility] [address] [place] [address] Dr. Estephanie Serrano CBC AUTO DIFFon 10-13-2021 BASO # 0.0 103/ul Normal 0.0-0.1 [facility] Comment on above: Performed By: #### C BC #### [facility] [address] [place] [address] Dr. Estephanie Serrano Basophils/100 WBC (Bld) 0.4 % Normal 0.2-2.0 [facility] Comment on above: Performed By: #### C BC #### [facility] [address] [place] [address] Dr. Estephanie Serrano EO # 0.2 103/ul Normal 0.0-0.7 [facility] Comment on above: Performed By: #### C BC #### [facility] [address] [place] [address] Dr. Estephanie Serrano Eosinophils/100 WBC (Bld) 2.9 % Normal 0.9-7.0 [facility] Comment on above: Performed By: #### C BC #### [facility] [address] [place] [address] Dr. Estephanie Serrano Erythrocyte distribution width (RBC) [Ratio] 14.3 % Normal 11.0-15.0 [facility] Comment on above: Performed By: #### C BC #### [facility] [address] [place] [address] Dr. Estephanie Serrano Hematocrit (Bld) [Volume fraction] 44.8 % Normal 42.0-54.0 [facility] Comment on above: Performed By: #### C BC #### [facility] [address] [place] [address] Dr. Estephanie Serrano Hemoglobin (Bld) [Mass/Vol] 14.0 g/dL Normal 14.0-18.0 [facility] Comment on above: Performed By: #### C BC #### [facility] [address] [place] [address] Dr. Estephanie Serrano IG # 0.04 10e3/ul Critically high 0.00-0.[address] [facility] Comment on above: Performed By: #### C BC #### [facility] [address] [place] [address] Dr. Estephanie Serrano IG % 0.6 % Critically high 0.0-0.5 [facility] Comment on above: Performed By: #### C BC #### [facility] [address] [place] [address] Dr. Estephanie Serrano LYMPH # 1.8 103/ul Normal 1.2-3.8 [facility] Comment on above: Performed By: #### C BC #### [facility] [address] [place] [address] Dr. Estephanie Serrano Lymphocytes/100 WBC (Bld) 26.4 % Normal 20.5-60.0 [facility] Comment on above: Performed By: #### C BC #### [facility] [address] [place] [address] Dr. Estephanie Serrano MANUAL DIFF REQ NO Normal [facility] Comment on above: Performed By: #### C BC #### [facility] [address] [place] [address] Dr. Estephanie Serrano MCH (RBC) [Entitic mass] 28.5 pg Normal 25.9-34.0 [facility] Comment on above: Performed By: #### C BC #### [facility] [address] [place] [address] Dr. Estephanie Serrano MCHC (RBC) [Mass/Vol] 31.3 g/dL Normal 29.9-35.2 [facility] Comment on above: Performed By: #### C BC #### [facility] [address] [place] [address] Dr. Estephanie Serrano MCV (RBC) [Entitic vol] 91.1 fL Normal 80.0-94.0 [facility] Comment on above: Performed By: #### C BC #### [facility] [address] [place] [address] Dr. Estephanie Serrano MONO # 0.8 103/ul Normal 0.3-0.8 [facility] Comment on above: Performed By: #### C BC #### [facility] [address] [place] [address] Dr. Estephanie Serrano Monocytes/100 WBC (Bld) 10.8 % Normal 1.7-12.0 [facility] Comment on above: Performed By: #### C BC #### [facility] [address] [place] [address] Dr. Estephanie Serrano NEUT # 4.1 103/ul Normal 1.4-6.5 [facility] Comment on above: Performed By: #### C BC #### [facility] [address] [place] [address] Dr. Estephanie Serrano Neutrophils/100 WBC (Bld) 58.9 % Normal 43.0-75.0 [facility] Comment on above: Performed By: #### C BC #### [facility] [address] [place] [address] Dr. Estephanie Serrano Platelet mean volume (Bld) [Entitic vol] 11.8 fL Normal 9.5-13.5 [facility] Comment on above: Performed By: #### C BC #### [facility] [address] [place] [address] Dr. Estephanie Serrano PLT 218 103/ul Normal 150-450 [facility] Comment on above: Performed By: #### C BC #### [facility] [address] [place] [address] Dr. Estephanie Serrano RBC 4.92 106/ul Normal 4.70-6.10 [facility] Comment on above: Performed By: #### C BC #### [facility] [address] [place] [address] Dr. Estephanie Serrano WBC 7.0 103/ul Normal 4.0-11.0 [facility] Comment on above: Performed By: #### C BC #### [facility] [address] [place] [address] Dr. Estephanie Serrano GLYCOHEMOGLOBIN A1Con 2021 ADA RECOMMENDATION ADA THERAPEUTIC TARGET 6.0 - 7.0 ACTION SUGGESTED > 7.0 Normal [facility] Comment on above: Performed By: #### A 1C #### [facility] [address] [address] [address] Estephanie Serrano Glucose [Mass/Vol] 169 mg/dL Normal [facility] Comment on above: Performed By: #### A 1C #### [facility] [address] [address] [address] Estephanie Serrano HbA1c (Bld) [Mass fraction] 7.5 % Critically high <=6.0 [facility] Comment on above: Performed By: #### A 1C #### [facility] [address] [address] [address] Estephanie Serrano LIPID PROFILEon 10-13-2021 CHOL-HDL RATIO NORM SEE BELOW Normal [facility] Comment on above: Result Comment: 3.3 - 4.4 LOW RISK 4.4 - 7.1 AVERAGE RISK 7.1 - 11.0 MODERATE RISK >11.0 HIGH RISK Performed By: #### L IPID, TSH, LIVER, BMP #### [facility] [address] [address] [address] Estephanie Serrano Cholesterol [Mass/Vol] 124 mg/dL Normal <=200 [facility] Comment on above: Performed By: #### L IPID, TSH, LIVER, BMP #### [facility] [address] [address] [address] Estephanie Serrano Cholesterol in HDL [Mass/Vol] 37 mg/dL Normal [facility] Comment on above: Performed By: #### L IPID, TSH, LIVER, BMP #### [facility] [address] [address] [address] Estephanie Serrano Cholesterol in LDL [Mass/Vol] 61.0 mg/dL Normal [facility] Comment on above: Performed By: #### L IPID, TSH, LIVER, BMP #### [facility] [address] [address] [address] Estephanie Serrano Cholesterol.total/Ch olesterol in HDL [Mass ratio] 3.4 {ratio} Normal [facility] Comment on above: Performed By: #### L IPID, TSH, LIVER, BMP #### [facility] [address] [address] [address] Estephanie Serrano HDL NORMAL > or = 60 mg/dl - LOW CARDIOVASCULAR RISK <40 mg/dl - HIGH CARDIOVASCULAR RISK Normal [facility] Comment on above: Performed By: #### L IPID, TSH, LIVER, BMP #### [facility] [address] [address] [address] Estephanie Serrano LDL CALC NORMAL SEE BELOW Normal [facility] Comment on above: Result Comment: <100 mg/dl OPTIMAL 100 - 129 mg/dl NEAR OR ABOVE OPTIMAL 130 - 159 mg/dl BORDERLINE HIGH 160 - 189 mg/dl HIGH >190 mg/dl VERY HIGH Performed By: #### L IPID, TSH, LIVER, BMP #### [facility] [address] [address] [address] Estephanie eSrrano Triglyceride [Mass/Vol] 130 mg/dL Normal <=150 [facility] Comment on above: Performed By: #### L IPID, TSH, LIVER, BMP #### [facility] [address] [address] [address] Estephanie Serrano VLDL CALC 26.0 mg/dL Normal [facility] Comment on above: Performed By: #### L IPID, TSH, LIVER, BMP #### [facility] [address] [address] [address] Estephanie Serrano LIVER PROFILEon 10-13-2021 Albumin [Mass/Vol] 3.6 g/dL Normal 3.5-5.0 [facility] Comment on above: Performed By: #### L IPID, TSH, LIVER, BMP #### [facility] [address] [address] [address] Estephanie Serrano Albumin/Globulin [Mass ratio] 1.0 {ratio} Normal [facility] Comment on above: Performed By: #### L IPID, TSH, LIVER, BMP #### [facility] [address] [address] [address] Estephanie Serrano ALP [Catalytic activity/Vol] 67 U/L Normal 38-126 [facility] Comment on above: Performed By: #### L IPID, TSH, LIVER, BMP #### [facility] [address] [place] [address] Dr. Estephanie Serrano ALT [Catalytic activity/Vol] 36 U/L Normal 21-72 [facility] Comment on above: Performed By: #### L IPID, TSH, LIVER, BMP #### [facility] [address] [place] [address] Dr. Estephanie Serrano AST [Catalytic activity/Vol] 30 U/L Normal 17-59 [facility] Comment on above: Performed By: #### L IPID, TSH, LIVER, BMP #### [facility] [address] [place] [address] Dr. Estephanie Serrano BILI, CONJUGATED 0.1 mg/dL Normal 0.0-0.3 [facility] Comment on above: Performed By: #### L IPID, TSH, LIVER, BMP #### [facility] [address] [place] [address] Dr. Estephanie Serrano Bilirubin [Mass/Vol] 0.4 mg/dL Normal 0.2-1.3 [facility] Comment on above: Performed By: #### L IPID, TSH, LIVER, BMP #### [facility] [address] [place] [address] Dr. Estephanie Serrano Globulin (S) [Mass/Vol] 3.5 g/dL Normal [facility] Comment on above: Performed By: #### L IPID, TSH, LIVER, BMP #### [facility] [address] [place] [address] Dr. Estephanie Serrano Protein [Mass/Vol] 7.1 g/dL Normal 6.1-8.2 [place] [facility] Comment on above: Performed By: #### L IPID, TSH, LIVER, BMP #### [facility] [address] [place] [address] Dr. Estephanie Serrano MICROALBUMIN, RAND URon 02-0 mALB 1.6 mg/L Normal <=30.0 [facility] Comment on above: Performed By: #### M ALBR #### [facility] [address] [address] [address] Estephanie Serrano PROF CHEM 8 (BAS METB)on Anion gap [Moles/Vol] 11.2 mmol/L Normal [facility] Comment on above: Performed By: #### L IPID, TSH, LIVER, BMP #### [facility] [address] [place] [address] Dr. Estephanie Serrano Calcium [Mass/Vol] 9.1 mg/dL Normal 8.4-10.2 [facility] Comment on above: Performed By: #### L IPID, TSH, LIVER, BMP #### [facility] [address] [place] [address] Dr. Estephanie Serrano Chloride [Moles/Vol] 99 mmol/L Normal 98-107 [facility] Comment on above: Performed By: #### L IPID, TSH, LIVER, BMP #### [facility] [address] [place] [address] Dr. Estephanie Serrano CO2 [Moles/Vol] 29.9 mmol/L Normal 22.0-30.0 [facility] Comment on above: Performed By: #### L IPID, TSH, LIVER, BMP #### [facility] [address] [place] [address] Dr. Estephanie Serrano Creatinine [Mass/Vol] 0.83 mg/dL Normal 0.66-1.25 [facility] Comment on above: Performed By: #### L IPID, TSH, LIVER, BMP #### [facility] [address] [place] [address] Dr. Estephanie Serrano EGFR-AF POLISH >60 Normal >=60 [facility] Comment on above: Performed By: #### L IPID, TSH, LIVER, BMP #### [facility] [address] [place] [address] Dr. Estephanie Serrano EGFR-NON AF POLISH >60 Normal >=60 [facility] Comment on above: Performed By: #### L IPID, TSH, LIVER, BMP #### [facility] [address] [place] [address] Dr. Estephanie Serrano Glucose [Mass/Vol] 219 mg/dL Critically high 74-106 [facility] Comment on above: Performed By: #### L IPID, TSH, LIVER, BMP #### [facility] [address] [place] [address] Dr. Estephanie Serrano Potassium [Moles/Vol] 4.1 mmol/L Normal 3.4-5.0 [facility] Comment on above: Performed By: #### L IPID, TSH, LIVER, BMP #### [facility] [address] [place] [address] Dr. Estephanie Serrano Sodium [Moles/Vol] 136 mmol/L Critically low 137-145 Th [facility] Comment on above: Performed By: #### L IPID, TSH, LIVER, BMP #### [facility] [address] [place] [address] Dr. Estephanie Serrano Urea nitrogen [Mass/Vol] 6.0 mg/dL Critically low 9.0-20.0 [facility] Comment on above: Performed By: #### L IPID, TSH, LIVER, BMP #### [facility] [address] [place] [address] Dr. Estephanie Serrano Urea nitrogen/Creatinine [Mass ratio] 7.2 mg/mg Normal [facility] Comment on above: Performed By: #### L IPID, TSH, LIVER, BMP #### [facility] [address] [place] [address] Dr. Estephanie Serrano TSHon 10-13-2021 TSH 1.390 uIU/mL Normal 0.470-4.680 [facility] Comment on above: Performed By: #### L IPID, TSH, LIVER, BMP #### [facility] [address] [place] [address] Dr. Estephanie Serrano TSH RANGE SEE BELOW Normal [facility] Comment on above: Result Comment: <0.3 4 UIU/ml HYPERTHYROID 0.34-5.60 UIU/ml EUTHYROID >5.60 UIU/ml HYPOTHYROID Performed By: #### L IPID, TSH, LIVER, BMP #### [facility] [address] [place] [address] Dr. Estephanie Serrano Basic Metabolic Panelon 11-0 Calcium [Mass/Vol] 8.8 mg/dL Normal 8.2-10.2 [facility] Comment on above: Performed By: #### C BC, BMP, HS TROP #### [facility] [address] Chloride [Moles/Vol] 100 mmol/L Normal 95-114 [place] Comment on above: Performed By: #### C BC, BMP, HS TROP #### [facility] [address] CO2 [Moles/Vol] 25.8 mmol/L Normal 22.0-30.0 [facility] Comment on above: Performed By: #### C BC, BMP, HS TROP #### [address] Creatinine [Mass/Vol] 0.74 mg/dL Normal 0.64-1.27 [facility] Comment on above: Performed By: #### C BC, BMP, HS TROP #### [place] [address] [place] Creatinine Clr Calc Pharmacy 120.85 [facility] Comment on above: Result Comment: PERF ORMED BY: [place] [address] PATHOLOGIST BEE RAISER DRU DEVINE M.D. Performed By: #### C BC, BMP, HS TROP #### [facility] [address] [place] [address] Estimated GFR ( Diann > 60 [facility] Comment on above: Result Comment: GFR estimated reference range: According to KDOQI guidelines, <60 ml/min/1.73m2 is sufficient to diagnose a patient with chronic kidney disease. Performed By: #### C BC, BMP, HS TROP #### [address] Estimated GFR (Non- Am > 60 [facility] Comment on above: Performed By: #### C BC, BMP, HS TROP #### [address] Glucose [Mass/Vol] 148 mg/dL High 70-100 [facility] Comment on above: Result Comment: [place] Glucose Reference Range is dependent on time and content of last meal. Glucose of more than 200 mg/dL in a nonstressed, ambulatory subject supports the diagnosis of Diabetes Mellitus. ADA recommended reference range Performed By: #### C BC, BMP, HS TROP #### [facility] [address] [id number] [facility] Potassium [Moles/Vol] 3.5 mmol/L Normal 3.5-5.1 [facility] Comment on above: Performed By: #### C BC, BMP, HS TROP #### [facility] [address] Sodium [Moles/Vol] 136 mmol/L Normal 136-146 [facility] Comment on above: Performed By: #### C BC, BMP, HS TROP #### [facility] [address] Urea nitrogen [Mass/Vol] 5 mg/dL Low 9-23 [facility] Comment on above: Performed By: #### C BC, BMP, HS TROP #### [facility] [address] COVID-19 Antigenon 1 COVID-19 Antigen Results [...] its performance Delia Disclaimer characteristic determined by Targeter App and Delia Disclaimer validated at [facility]. This Delia Disclaimer test has not been [...] Emergency Use Authorization for Coronavirus Delia Disclaimer iseas during the Public Health Emergency) Delia Disclaimer [...] is terminated or revoked sooner. PERFORMED BY: [address] [place] [address] PATHOLOGIST BEE RAISER DRU DEVINE M.D. [facility] Comment on above: Performed By: #### S OFIAPOS, COVID-19 DELIA #### [address] Complete Blood Count Auto Di ffon 07-13-2021 Basophils (Bld) [#/Vol] 0.0 10*3/uL Normal 0.0-0.2 [facility] Comment on above: Result Comment: PERF ORMED BY: [place] [address] PATHOLOGIST BEE RAISER DRU DEVINE M.D. Performed By: #### C BC, BMP, HS TROP #### [address] Basophils/100 WBC (Bld) 0.6 % Normal . [facility] Comment on above: Performed By: #### C BC, BMP, HS TROP #### [address] Eosinophils (Bld) [#/Vol] 0.1 10*3/uL Normal 0.0-0.45 [facility] Comment on above: Performed By: #### C BC, BMP, HS TROP #### [place] [address] [place] Eosinophils/100 WBC (Bld) 0.8 % Normal . [facility] Comment on above: Performed By: #### C BC, BMP, HS TROP #### [address] Erythrocyte distribution width (RBC) [Ratio] 14.5 % Normal 12.0-14.8 [facility] Comment on above: Performed By: #### C BC, BMP, HS TROP #### [address] Hematocrit (Bld) [Volume fraction] 42.0 % Normal 38.8-50.0 [facility] Comment on above: Performed By: #### C BC, BMP, HS TROP #### [facility] [address] [place] [address] [place] Hemoglobin (Bld) [Mass/Vol] 14.0 g/dL Normal 13.0-17.0 [facility] Comment on above: Performed By: #### C BC, BMP, HS TROP #### [place] [address] [place] Lymphocytes (Bld) [#/Vol] 0.7 10*3/uL Low 1.00-4.8 [facility] Comment on above: Performed By: #### C BC, BMP, HS TROP #### [address] Lymphocytes/100 WBC (Bld) 9.9 % Normal . [facility] Comment on above: Performed By: #### C BC, BMP, HS TROP #### [address] MCH (RBC) [Entitic mass] 28.7 pg Normal 27.5-35.2 [facility] Comment on above: Performed By: #### C BC, BMP, HS TROP #### [address] MCV (RBC) [Entitic vol] 86.0 fL Normal 83.5-101 [facility] Comment on above: Performed By: #### C BC, BMP, HS TROP #### [address] Mean Corpuscular HGB Conc 33.4 g/dL Normal 32.5-35.6 [facility] Comment on above: Performed By: #### C BC, BMP, HS TROP #### [address] Monocytes (Bld) [#/Vol] 1.1 10*3/uL High 0.0-0.8 [facility] Comment on above: Performed By: #### C BC, BMP, HS TROP #### [place] [address] [place] Monocytes/100 WBC (Bld) 16.1 % Normal . [facility] Comment on above: Performed By: #### C BC, BMP, HS TROP #### [address] Neutrophils (Bld) [#/Vol] 5.0 10*3/uL Normal 1.8-7.7 [facility] Comment on above: Performed By: #### C BC, BMP, HS TROP #### [facility] [address] [place] [address] [place] Neutrophils/100 WBC (Bld) 72.6 % Normal . [facility] Comment on above: Performed By: #### C BC, BMP, HS TROP #### [facility] [address] [place] [address] [place] Nucleated RBC/100 WBC (Bld) [Ratio] 0.1 % Normal 0-0.5 [facility] Comment on above: Performed By: #### C BC, BMP, HS TROP #### [facility] [address] Platelet mean volume (Bld) [Entitic vol] 9.0 fL Normal 6.6-10.1 [facility] Comment on above: Performed By: #### C BC, BMP, HS TROP #### [facility] [address] Platelets (Bld) [#/Vol] 157 10*3/uL Normal 150-450 [facility] Comment on above: Performed By: #### C BC, BMP, HS TROP #### [facility] [address] [place] [address] [place] RBC (Bld) [#/Vol] 4.88 10*6/uL Normal 3.90-5.60 [facility] Comment on above: Performed By: #### C BC, BMP, HS TROP #### [facility] [address] [place] [address] [place] WBC (Bld) [#/Vol] 6.9 10*3/uL Normal 4.5-11.0 [facility] Comment on above: Performed By: #### C BC, BMP, HS TROP #### [facility] [address] D-Dimer High Sensitivityon 1 09-12-2020 D-Dimer High Sensitivity < 200 Normal 0-243 [facility] Comment on above: Result Comment: The reference [...] patients due to co-morbid conditions. PERFORMED BY: [place] [id number] PATHOLOGIST BEE RAISER DRU DEVINE M.D. Performed By: #### D DIMER #### [id number] [facility] ECG 12 lead ECGon 07-13-2021 ECG 12 lead ECG [facility] [place] [address] [place] [address] Electrocardiograph Report Signed Patient: Mohit Arboleda MR#: [id number] : 1950 Acct:[id number] Age/Sex: 70 / M ADM Date: 07/13/21 Loc: ER Room: Type: [facility] ER Attending Dr: Ordering Provider: Francisco [...] voltage QRS Confirmed by Francisco Jerez DO ([id number]) on 07/13/2021 10:18:29 PM Referred By: Electronically Signed By:Francisco Jerez DO Transcribed By: MUS Signed By Francisco Jerez DO 07/13 2218 Normal [facility] Delia Ag Positiveon 07-13-20 Delia Ag Positive Positive Critically abnormal Negative [facility] Comment on above: Result Comment: This is a duplicate Delia SARS Antigen (JESSIE) result to be used for statistical tracking purpose only. PERFORMED BY: [address] [address] PATHOLOGIST BEE RAISER DRU DEVINE M.D. Performed By: #### S OFIAPOS, COVID-19 DELIA #### [facility] [address] [place] [address] Troponin I High Sensitivityo n 07-13-2021 Troponin I High Sensitivity 5 pg/mL Normal 0-20 [facility] Comment on above: Result Comment: PERF ORMED BY: [place] [address] PATHOLOGIST BEE RAISER DRU DEVINE M.D. Performed By: #### C BC, BMP, HS TROP #### [address] XR chest 1V portableon 07-13 XR chest 1V portable [facility] [place] [address] [place] [address] XRay Report Signed Patient: Mohit Arboleda MR#: [id number] : 1950 Acct:[id number] Age/Sex: 70 / M ADM Date: 07/13/21 Loc: ER Room: Type: [facility] ER Attending Dr: Ordering Provider: Francisco [...] Acosta Jr., M.D.07/13/2021 9:38 PM Dictation Location: [place] [address] Transcribed By: [facility] 07/13/212137 Dictated By: Elver Acosta Jr, MD 07/13/212136 Signed By: 07/13/212137 [facility] Vital Signs Date Time Vital Sign Value Performing Clinician Facility 03-19-2025 10:34-0400 Body height 177.8 cm Arcenio Peñaloza DPM Work Phone: [facility] 03-19-2025 10:34-0400 Body mass index (BMI) [Ratio] 42.9 kg/m2 Arcenio Peñaloza DPM Work Phone: [facility] 03-19-2025 10:34-0400 Body weight 135.63 kg Arcenio Peñaloza DPM Work Phone: [facility] 02-21-2025 10:10-0400 Body height 177.8 cm Lj Salazar MD Work Phone: [facility] 02-21-2025 10:10-0400 Body mass index (BMI) [Ratio] 42.9 kg/m2 Lj Salazar MD Work Phone: [facility] 02-21-2025 10:10-0400 Body temperature 97.3 [degF] Lj Salazar MD Work Phone: [facility] 02-21-2025 10:10-0400 Body weight 135.63 kg Lj Salazar MD Work Phone: [facility] 02-21-2025 10:10-0400 Diastolic blood pressure 78 mm[Hg] Lj Salazar MD Work Phone: [facility] 02-21-2025 10:10-0400 Heart rate 94 /min Lj Salazar MD Work Phone: [facility] 02-21-2025 10:10-0400 Respiratory rate 18 /min Lj Salazar MD Work Phone: [facility] 02-21-2025 10:10-0400 SaO2% (BldA) [Mass fraction] 95 % Lj Salazar MD Work Phone: [facility] 02-21-2025 10:10-0400 Systolic blood pressure 154 mm[Hg] Lj Salazar MD Work Phone: [facility] 08-29-2024 10:49-0500 Body height 177.8 cm Arcenio Peñaloza DPM Work Phone: [facility] 08-29-2024 10:49-0500 Body mass index (BMI) [Ratio] 44.48 kg/m2 Arcenio Peñaloza DPM Work Phone: [facility] 08-29-2024 10:49-0500 Body weight 140.62 kg Arcenio Guillory DPM Work Phone: [facility] 08-24-2024 09:09-0500 Body height 177.8 cm Lj Salazar MD Work Phone: [facility] 08-24-2024 09:09-0500 Body mass index (BMI) [Ratio] 43.19 kg/m2 Lj Salazar MD Work Phone: [facility] 08-24-2024 09:09-0500 Body temperature 98.01 [degF] Lj Salazar MD Work Phone: [facility] 08-24-2024 09:09-0500 Body weight 136.53 kg Lj Salazar MD Work Phone: [facility] 08-24-2024 09:09-0500 Diastolic blood pressure 58 mm[Hg] Lj Salazar MD Work Phone: [facility] 08-24-2024 09:09-0500 Heart rate 100 /min Lj Salazar MD Work Phone: [facility] 08-24-2024 09:09-0500 Respiratory rate 18 /min Lj Salazar MD Work Phone: [facility] 08-24-2024 09:09-0500 SaO2% (BldA) [Mass fraction] 92 % Lj Salazar MD Work Phone: [facility] 08-24-2024 09:09-0500 Systolic blood pressure 124 mm[Hg] Lj Salazar MD Work Phone: [facility] 07-30-2024 10:47-0500 Body height 177.8 cm Markell Bailon FOOD AND BEVERAGE CASHIER-OFFICE MANAGER Work Phone: [facility] 07-30-2024 10:47-0500 Body mass index (BMI) [Ratio] 44.6 kg/m2 Markell Bailon [employer] AND BEVERAGE CASHIER-OFFICE MANAGER Work Phone: [facility] 07-30-2024 10:47-0500 Body weight 140.98 kg Markell Bailon [employer]OD AND BEVERAGE CASHIER-OFFICE MANAGER Work Phone: [facility] 07-30-2024 10:47-0500 Diastolic blood pressure 83 mm[Hg] Markell Bailon FOOD AND BEVERAGE CASHIER-OFFICE MANAGER Work Phone: [facility] 07-30-2024 10:47-0500 Heart rate 82 /min Markell Bailon FOOD AND BEVERAGE CASHIER-OFFICE MANAGER Work Phone: [facility] 07-30-2024 10:47-0500 Systolic blood pressure 166 mm[Hg] Markell Bailon FOOD AND BEVERAGE CASHIER-OFFICE MANAGER Work Phone: [facility] 05-29-2024 10:59-0400 Body height 179.1 cm Arcenio Peñaloza DPM Work Phone: [facility] 05-29-2024 10:59-0400 Body mass index (BMI) [Ratio] 43.14 kg/m2 Arcenio Peñaloza DPM Work Phone: [facility] 05-29-2024 10:59-0400 Body weight 138.35 kg Arcenio Peñaloza DPM Work Phone: [facility] 05-16-2024 08:34-0400 Body height 175.3 cm Lj Salazar MD Work Phone: [facility] 05-16-2024 08:34-0400 Body mass index (BMI) [Ratio] 45.04 kg/m2 Lj Salazar MD Work Phone: [facility] 05-16-2024 08:34-0400 Body temperature 97.11 [degF] Lj Salazar MD Work Phone: [facility] 05-16-2024 08:34-0400 Body weight 138.35 kg Lj Salazar MD Work Phone: [facility] 05-16-2024 08:34-0400 Diastolic blood pressure 70 mm[Hg] Lj Salazar MD Work Phone: [facility] 05-16-2024 08:34-0400 Heart rate 91 /min Lj Salazar MD Work Phone: [facility] 05-16-2024 08:34-0400 Respiratory rate 20 /min Lj Salazar MD Work Phone: [facility] 05-16-2024 08:34-0400 SaO2% (BldA) [Mass fraction] 97 % Lj Salazar MD Work Phone: [facility] 05-16-2024 08:34-0400 Systolic blood pressure 130 mm[Hg] Lj Salazar MD Work Phone: [facility] Healthcare Encounters Encounter Date Encounter Type Care Provider Facility Start: 03-19-2025 End: 03-19-2025 Bamboo flowsheet Arcenio Peñaloza DPM Work Phone: [facility] Start: 03-19-2025 End: 03-19-2025 Bamboo flowsheet Arcenio Peñaloza DPM Work Phone: [facility] Start: 03-19-2025 End: 03-19-2025 ambulatory ARCENIO PEÑALOZA Not Available Start: 03-19-2025 End: 03-19-2025 Patient encounter procedure Arcenio Peñaloza DPM Work Phone: [facility] Comment on above: Dermatophytosis of n ail (Primary Dx); Dystrophic nail; Pain around toenail, right foot; Pain around toenail, left foot Start: 02-21-2025 End: 02-21-2025 Bamboo flowsheet Lj Salazar MD Work Phone: [facility] Start: 02-21-2025 End: 02-21-2025 Bamboo flowsheet Lj Salazar MD Work Phone: [facility] Start: 02-21-2025 End: 02-21-2025 Office outpatient visit 25 minutes Lj Salazar MD Work Phone: [facility] Comment on above: Type 2 diabetes tanisha itus with hyperglycemia, without long-term current use of insulin (HCC) (Primary Dx); Benign essential hypertension ; Class 3 severe obesity due to excess calories with serious comorbidity and body mass index (BMI) of 40.0 to 44.9 in adult ([facility]-HCC); Dyslipidemia ; Encounter for long-term (current) use of medications; Screening PSA (prostate specific antigen) Start: 02-21-2025 End: 02-21-2025 ambulatory LJ SALAZAR Not Available Start: 12-05-2024 End: 12-05-2024 Bamboo flowsheet Arcenio Peñaloza DPM Work Phone: [facility] Start: 12-05-2024 End: 12-05-2024 Bamboo flowsheet Arcenio Peñaloza DPM Work Phone: [facility] Start: 12-05-2024 End: 12-05-2024 ambulatory ARCENIO PEÑALOZA Not Available Start: 12-05-2024 End: 12-05-2024 Patient encounter procedure Arcenio Peñaloza DPM Work Phone: [facility] Comment on above: Dermatophytosis of n ail (Primary Dx); Dystrophic nail; Pain around toenail, right foot; Pain around toenail, left foot Start: 10-24-2024 End: 10-24-2024 Refill Faby Draper DO [facility] Start: 09-03-2024 End: 09-03-2024 Telephone encounter Daphnie Hairston CMA [facility] Start: 08-29-2024 End: 08-29-2024 Bamboo flowsheet Arcenio Peñaloza DPM Work Phone: [facility] Start: 08-29-2024 End: 08-29-2024 Bamboo flowsheet Arcenio Peñaloza DPM Work Phone: [facility] Start: 08-29-2024 End: 08-29-2024 Patient encounter procedure Arcenio Peñaloza DPM Work Phone: [facility] Comment on above: Dermatophytosis of n ail (Primary Dx); Dystrophic nail; Pain around toenail, right foot; Pain around toenail, left foot Start: 08-29-2024 End: 08-29-2024 ambulatory ARCENIO PEÑALOZA Not Available Start: 08-24-2024 End: 08-24-2024 Bamboo flowsheet Lj Salazar MD Work Phone: [facility] Start: 08-24-2024 End: 08-24-2024 Bamboo flowsheet Lj Salazar MD Work Phone: [facility] Start: 08-24-2024 End: 08-24-2024 Patient encounter procedure Lj Salazar MD Work Phone: [facility] Healthcare Work Phone: Start: 08-24-2024 End: 08-24-2024 Postop follow up visit related to original px Lj Salazar MD Work Phone: [facility] Comment on above: Medicare annual well ness visit, subsequent (Primary Dx) Start: 08-24-2024 End: 08-24-2024 ambulatory LJ SALAZAR Not Available Start: 08-23-2024 End: 08-23-2024 Refill Faby Draper DO Work Phone: [facility] Start: 08-23-2024 End: 08-23-2024 Evaluation and management of inpatient FABY DRAPER [facility] Start: 07-30-2024 End: 07-30-2024 Office outpatient new 30 minutes Markell Bailon FOOD AND BEVERAGE CASHIER-OFFICE MANAGER Work Phone: [facility] Comment on above: Positive colorectal cancer screening using Cologuard test (Primary Dx); Family history of stomach cancer Start: 07-30-2024 End: 07-30-2024 ambulatory [facility] Start: 06-27-2024 End: 06-27-2024 Orders Only Lj Salazar MD Work Phone: [facility] Comment on above: Positive colorectal cancer screening using Cologuard test (Primary Dx) Start: 06-20-2024 End: 06-20-2024 Orders Only Lj Salazar MD Work Phone: [facility] Comment on above: Type 2 diabetes tanisha itus with hyperglycemia, without long-term current use of insulin ([facility]) Start: 06-19-2024 End: 06-19-2024 Clinisync Result Encounter Lj Salazar MD Work Phone: [facility] External Department Unsolicited Start: 06-19-2024 End: 06-19-2024 Clinisync Result Encounter Lj Salazar MD Work Phone: [facility] External Department Unsolicited Start: 05-29-2024 End: 05-29-2024 Bamboo flowsheet Arcenio Peñaloza DPM Work Phone: [facility] Start: 05-29-2024 End: 05-29-2024 Bamboo flowsheet Arcenio Peñaloza DPM Work Phone: [facility] Start: 05-29-2024 End: 05-29-2024 Patient encounter procedure Arcenio Peñaloza DPM Work Phone: [facility] Comment on above: Dermatophytosis of n ail (Primary Dx); Dystrophic nail; Pain around toenail, right foot; Pain around toenail, left foot Start: 05-29-2024 End: 05-29-2024 ambulatory ARCENIO PEÑALOZA Not Available Start: 05-16-2024 End: 05-16-2024 Bamboo flowsheet Lj Salazar MD Work Phone: [facility] Start: 05-16-2024 End: 05-16-2024 Bamboo flowsheet Lj Salazar MD Work Phone: [facility] Start: 05-16-2024 End: 05-16-2024 Office outpatient visit 15 minutes Lj Salazar MD Work Phone: [facility] Comment on above: Type 2 diabetes tanisha itus with hyperglycemia, without long-term current use of insulin (CMS/HCC) (Primary Dx); Benign essential hypertension (CMS/HCC); Colon cancer screening; Morbid obesity due to excess calories (CMS/HCC) Start: 05-16-2024 End: 05-16-2024 ambulatory LJ SALAZAR Not Available Start: 09-23-2022 End: 09-24-[address] LJ SALAZAR Facility:[facility] Start: 10-13-2021 End: 10-14-[address] LJ SALAZAR Facility:[facility] Procedures Date Procedure Procedure Detail Performing Clinician Start: 08-23-2024 Colonoscopy Lj mota MD Work Phone: Start: 06-19-2024 MLR HEMOGLOBIN A1C Lj Salazar MD Work Phone: Start: 10-13-[address] LJ HARKINS Comment on above: Performed By: #### P [facility] #### [facility] [address] [place] [address] Dr. Estephanie Serrano Plan of Treatment Date Care Activity Detail Author Start: 08-23-2034 Screening for malignant neoplasm of colon [facility] Start: 08-23-2029 Screening for malignant neoplasm of colon Colonoscopy [facility] Start: 06-18-2027 Screening for malignant neoplasm of colon [facility] Start: 08-26-2025 End: 08-26-2025 Patient encounter procedure 08/26/2025 9:30 AM EST Off ice Visit [facility] [address] [place] [phone] Lj Salazar MD [address] [place] [phone] [facility] Start: 08-24-2025 Medicare Annual Wellness (AWV) Medicare Annual Wellness (AWV ) [facility] Start: 08-23-2025 Adult BMI Screening Adult BMI Screening [facility] Start: 08-23-2025 Tobacco Screening Tobacco Screening [facility] Start: 07-30-2025 Adult BMI Screening Adult BMI Screening [facility] Start: 07-30-2025 Tobacco Screening Tobacco Screening [facility] Start: 07-02-2025 End: 07-02-2025 Patient encounter procedure 07/02/2025 10:15 AM EDT Procedure Visit [facility] [address] [place] [address] Arcenio Peñaloza DPM [address] [place] [address] [facility] Start: 05-13-2025 Influenza vaccination Influenza Vaccine (#1) [facility] Start: 03-19-2025 End: 03-19-2025 Patient encounter procedure 03/19/2025 10:30 AM EDT Procedure Visit [facility] [address] [facility] [place] [phone] Arcenio Peñaloza DPM [address] [place] [address] [facility] Start: 02-22-2025 End: 02-22-2025 Patient encounter procedure 02/22/2025 9:00 AM EDT Off ice Visit [facility] [address] [place] [address] Lj Salazar MD [address] [place] [address] [facility] Start: 02-21-2025 End: 02-21-2026 Basic metabolic 1998 panel - Serum or Plasma Basic metabolic panel Lab Routine Benign essential hypertension Expected: 02/21/2025 (Approximate), Expires: 02/21/2026 [facility] Comment on above: Expected: 02/21/2025 (Approximate), Expi res: 02/21/2026 Start: 02-21-2025 End: 02-21-2026 CBC W Auto Differential panel - Blood CBC and differential Lab Routine Encounter for long-term (current) use of medications Expected: 02/21/2025 (Approximate), Expires: 02/21/2026 [facility] Comment on above: Expected: 02/21/2025 (Approximate), Expi res: 02/21/2026 Start: 02-21-2025 End: 02-21-2026 Hemoglobin A1c/Hemoglobin.total in Blood Hemoglobin A1c Lab Routine Type 2 diabetes mellitus with hyperglycemia, without long-term current use of insulin (HCC) Expected: 02/21/2025 (Approximate), Expires: 02/21/2026 [facility] Comment on above: Expected: 02/21/2025 (Approximate), Expi res: 02/21/2026 Start: 02-21-2025 End: 02-21-2026 Hepatic function 2000 panel - Serum or Plasma Hepatic function panel Lab Routine Encounter for long-term (current) use of medications Expected: 02/21/2025 (Approximate), Expires: 02/21/2026 [facility] Comment on above: Expected: 02/21/2025 (Approximate), Expi res: 02/21/2026 Start: 02-21-2025 End: 02-21-2026 Lipid 1996 panel - Serum or Plasma Lipid panel Lab Routine Dyslipidemia Expected: 02/21/2025 (Approximate), Expires: 02/21/2026 [facility] Comment on above: Expected: 02/21/2025 (Approximate), Expi res: 02/21/2026 Start: 02-21-2025 End: 02-21-2026 Microalbumin/Creatinine panel in random Urine Microalbumin / creatinine, urine ratio Lab Routine Type 2 diabetes mellitus with hyperglycemia, without long-term current use of insulin (HCC) Expected: 02/21/2025 (Approximate), Expires: 02/21/2026 [facility] Work Phone: Comment on above: Expected: 02/21/2025 (Approximate), Expi res: 02/21/2026 Start: 02-21-2025 End: 02-21-2026 Prostate specific Ag [Mass/volume] in Serum or Plasma PSA Lab Routine Screening PSA (prostate specific antigen) Expected: 02/21/2025 (Approximate), Expires: 02/21/2026 [facility] Comment on above: Expected: 02/21/2025 (Approximate), Expi res: 02/21/2026 Start: 02-21-2025 End: 02-21-2026 Thyrotropin [Units/volume] in Serum or Plasma TSH Lab Routine Class 3 severe obesity due to excess calories with serious comorbidity and body mass index (BMI) of 40.0 to 44.9 in adult ([facility]) Expected: 02/21/2025 (Approximate), Expires: 02/21/2026 [facility] Comment on above: Expected: 02/21/2025 (Approximate), Expi res: 02/21/2026 Start: 02-21-2025 End: 02-21-2025 Patient encounter procedure [facility] Comment on above: Arrived Start: 12-18-2024 Hemoglobin A1c measurement Diabetes: Hemoglobin A1C [facility] Start: 12-05-2024 End: 12-05-2024 Patient encounter procedure 12/05/2024 10:45 AM EDT Procedure Visit [facility] [address] [place] [phone] Arcenio Peñaloza, DP [address] [place] [address] [facility] Start: 10-03-2024 Urine screening for protein Diabetes: Urine Protein Screening [facility] Start: 08-29-2024 End: 08-29-2024 Patient encounter procedure [facility] Comment on above: Arrived Start: 08-24-2024 End: 08-24-2024 Patient encounter procedure [facility] Comment on above: Arrived Start: 08-23-2024 End: 08-23-2024 Admission to same day surgery center 08/23/2024 8:30 AM EST - 08/23/2024 9:15 AM EST Surgery [facility] - Surgery [address] [place] [phone] Faby Draper, DO [address] [place], [place] [phone] ESOPHAGOGASTRODUODENOSCOPY DIAGNOSTIC [05737 (CPT )] [facility] Comment on above: ESOPHAGOGASTRODUODENOSCOPY DIAGNOSTIC [4 3235 (CPT )] Start: 08-23-2024 Subsequent hospital visit by physician 08/23/2024 8:30 AM EST Hospital Encounter [facility] [address] [place] [phone] Faby Draper, DO [address] [place], [place] [phone] [facility] Start: 08-23-2024 End: 08-23-2024 Colonoscopy flx dx w/collj spec when pfrmd [facility] Start: 08-23-2024 End: 08-23-2024 Esophagogastroduodenoscopy transoral diagnostic [facility] Start: 2024 End: 2024 ambulatory 2024 2:30 PM EST Suppo rt Visit [facility] - Pre Admit [address] [place] [address] [facility] Pre Admit Start: 05-29-2024 End: 05-29-2024 Patient encounter procedure [facility] Comment on above: Arrived Start: 05-16-2024 End: 05-16-2025 Hemoglobin A1c/Hemoglobin.total in Blood Hemoglobin A1c Lab Routine Type 2 diabetes mellitus with hyperglycemia, without long-term current use of insulin ([facility]) Expected: 05/16/2024 (Approximate), Expires: 05/16/2025 [facility] Comment on above: Expected: 05/16/2024 (Approximate), Expi res: 05/16/2025 Start: 05-16-2024 End: 05-16-2024 Patient encounter procedure 05/16/2024 8:30 AM EDT Off ice Visit [facility] [address] [place] [address] Lj Salazar MD [address] [place] [phone] Arrived [facility] Comment on above: Arrived Start: 05-13-2024 COVID-19 Vaccine () COVID-19 Vaccine () [facility] Start: 05-13-2024 Influenza vaccination Influenza Vaccine (#1) [facility] Start: 04-02-2024 Hemoglobin A1c measurement Diabetes: Hemoglobin A1C [facility] Start: 2017 Abdominal aortic aneurysm screening Abdominal Aortic Aneurysm (AAA) Screen [facility] Start: 2017 Fall Risk Screening Fall Risk Screening [facility] Start: 2002 Administration of varicella zoster vaccine Zoster (Shingles) Vaccine (1 of 2) [facility] Start: 1971 DTaP,Tdap and Td Vaccines (1 - Tdap) DTaP,Tdap and Td Vaccines (1 - Tdap) [facility] Start: 1971 Pneumococcal Vaccine: 65+ Years (1 of 2 - PCV) Pneumococcal Vaccine: 65+ Years (1 of 2 - PCV) [facility] Start: 1971 Urine screening for protein Diabetes: Urine Protein Screening [facility] Start: 1970 Adult BMI Follow Up Plan Adult BMI Follow Up Plan [facility] Start: 1964 Depression Screening Depression Screening [facility] Start: 1962 Glaucoma screening Diabetes: Retinopathy Screening [facility] Start: 1958 Pneumococcal Vaccine: 65+ Years (1 of 2 - PCV) Pneumococcal Vaccine: 65+ Years (1 of 2 - PCV) [facility] Start: 1952 Hemoglobin A1c measurement Diabetes: Hemoglobin A1C [facility] Start: 1952 Medicare Annual Wellness (AWV) Medicare Annual Wellness (AWV ) [facility] Start: 1952 Screening for malignant neoplasm of colon [facility] Start: 1952 Tobacco Counseling Tobacco Counseling [facility] End: 07-30-2025 EGD / Colonoscopy EGD / Colonoscopy GI Routine Positive colorectal cancer screening using Cologuard test 1 Occurrences starting 07/30/2024 until 07/30/2025 [facility] Work Phone: Comment on above: 1 Occurrences starting 07/30/2024 until 07/30/2025 Noninvasive colorect al cancer DNA and occult blood screening [Presence] in Stool Cologuard colon cancer screening Lab Routine Colon cancer screening Ordered: 05/16/2024 [facility] Work Phone: Comment on above: Ordered: 05/16/2024 Immunizations Immunization Date Immunization Notes Care Provider Fa [facility] 07-16-2024 influenza virus vacc ine, unspecified formulation Arcenio Peñaloza DPM Work Phone: [facility] 06-28-2023 Influenza, Seasonal, Quadrivalent, Adjuvanted Lj Salazar MD Work Phone: [facility] 06-28-2023 influenza virus vacc ine, unspecified formulation Lj Salazar MD Work Phone: [facility] 07-16-2022 Influenza, Seasonal, Quadrivalent, Adjuvanted Lj Salazar MD Work Phone: [facility] 06-17-2021 Influenza, High-dose Seasonal, Quadrivalent, Preservative Free Lj Salazar MD Work Phone: [facility] 06-11-2020 Influenza, Seasonal, Quadrivalent, Adjuvanted Lj Salazar MD Work Phone: [facility] 07-05-2019 Seasonal trivalent influenza vaccine, adjuvanted, preservative free Lj Salazar MD Work Phone: [facility] 05-22-2018 influenza, high dose seasonal, preservative-free Lj Salazar MD Work Phone: [facility] 09-22-2017 Seasonal trivalent influenza vaccine, adjuvanted, preservative free Lj Salazar MD Work Phone: [facility] 06-25-2016 influenza, seasonal, injectable, preservative free Lj Salazar MD Work Phone: [facility] 06-28-2015 influenza, seasonal, injectable, preservative free Lj Salazar MD Work Phone: [facility] 08-10-2013 influenza, seasonal, injectable Lj Salazar MD Work Phone: [facility] Payers Date Payer Category Payer Medicare [employer] ADVANTAGE [facility] MEDICARE ADVANTAGE [id number] 2021-Present [address] [place] [id number] 2021 Medicare (Managed Care) [facility] [id number] 2017 Medicare HMO [employer] Member Subscriber Plan / Payer (Effective 2017-Present) Name: Mohit Arboleda Relation to Subscriber: Self Name: Mohit Arboleda Payer ID: [id number] (NAIC) Group ID: [id number] Type: Not on file Address: [address] [place] [id number] 1959 Unknown [id number] 1952 Unknown [id number] [id number] 1952 Unknown [id number]. [id number] 1952 Unknown [id number]. 2.1286 1952 Unknown [id number]. 2.1286 1952 Unknown [id number] 2.1259 1952 Unknown [id number] [id number]. 2.1259 1952 Unknown [id number] 2.1259 1952 Unknown [id number]. 2.1259 1952 Unknown [id number]. 2.1259 1952 Unknown [id number] 2.1259 1952 Unknown [id number] 2.1259 Social History Date Type Detail Facility Start: 05-16-2024 Tobacco smoking stat [facility] Ex-smoker [facility] Start: 09-12-1971 History of tobacco use Current smoke r [facility] Start: 09-12-1971 History of tobacco use Cigarette Smo ker [facility] Start: 05-16-2024 End: 08-24-2024 Cigarettes smoked current (pack per day) - Reported 1 [facility] Start: 05-16-2024 End: 07-30-2024 Tobacco use and exposure Smokeless tobacco non-user [facility] Start: 05-29-2024 End: 03-19-2025 Alcoholic beverage intake Lifetime non-drinker (finding) [facility] Start: 05-29-2024 End: 08-24-2024 Tobacco use panel [facility] Start: 1950 Sex assigned at Not on file [facility] Start: 09-12-1972 End: 07-30-2024 Tobacco smoking status NHIS Smokes tobacco daily [facility] History of tobacco use Tobacco U se Types Packs/Day Years Used Date Smoking Tobacco: Every Day Cigarettes Started: 1972 Vaping/E-cigarettes Smokeless Tobacco: Never [facility] Start: 08-23-2024 End: 08-24-2024 Alcoholic beverage intake Ex-drinker (finding) [facility] Childcare Unknown [facility] Start: 04-17-2015 Sex Male (finding) [facility] Clinical Notes 05-16-2024 to 03-19-2025 Arcenio Peñaloza DPM - 03/19/2025 10:30 AM Divina Salazar MD - 02/21/2025 10:43 AM Divina Salazar MD - 02/21/2025 10:43 AM Divina Salazar MD - 02/21/2025 10:43 AM EDTPatient Instructions Note Date & Type Note Facility 03-19-2025 History of Presen t illness Narrative Images from the original note were not included. Subjective Patient ID: Mohit Arboleda is a 74 y.o. male who presents for DM Foot Care (Established patient presents today with his for routine diabetic nail care. PCP: Dr. Marie PIERRE 02/21/25, A1C: 8.1 (06/2024), BS: hasn't checked). HPI HPI Onychomycosis/Toenail Fungus: Symptomatic toenail deformity. Requesting nail care. Location: Identifies multiple digits with thickened, deformed and discolored toenails; all are problematic/symptomatic. Duration: chronic toenail deformity, multiple years duration. Severity of symptoms: mild-moderate; impacting his ability to wear shoes comfortably. Onset: gradual, without known injury or trauma. Status: problematic/symptomatic over the past several weeks or so. Context: hard to trim, hard to reach; self-care is difficult, ineffective and not practical; significantly increasing risk exposure. His spouse and/or family members are unable to provide effective care. Characteristics: discolored, thickened, pain , pressure , elongated , /lifting , ingrowing , crusty; without bleeding or drainage. Relieved by: palliative care measures have provided favorable transient symptom relief. Previous Treatment: palliative care measures as noted. Risk factors: Medical comorbidities. Type II diabetes. Chronic venous insufficiency/lower extremity swelling. Mobility, flexibility and dexterity restraints. Toenail deformity. Digital and/or shoe trauma and related complications. Aggravated by: shoe gear , pressure , walking; catching and snagging on clothing etc.. Medications Current Outpatient Medications: albuterol HFA 90 mcg/act inhaler, Inhale 2 puffs every 4 (four) hours if needed for wheezing, Disp: , Rfl: glipiZIDE (Glucotrol) 10 MG tablet, TAKE 1 TABLET BY MOUTH TWICE DAILY, Disp: 180 tablet, Rfl: 3 lisinopril 20 MG tablet, TAKE 1 TABLET BY MOUTH DAILY, Disp: 90 tablet, Rfl: 3 metFORMIN (Glucophage) 500 MG tablet, Take 500 mg by mouth in the morning. Take with meals., Disp: , Rfl: omeprazole (PriLOSEC) [address] capsule, Take 1 capsule (40 mg) by mouth in the morning and 1 capsule (40 mg) in the evening. Take before meals., Disp: 180 capsule, Rfl: 3 pioglitazone (Actos) 45 MG tablet, Take 1 tablet (45 mg) by mouth Daily, Disp: 90 tablet, Rfl: 3 simvastatin (Zocor) 20 MG tablet, TAKE 1 TABLET BY MOUTH AT BEDTIME, Disp: 90 tablet, Rfl: 3 metFORMIN XR (Glucophage-XR) 500 MG 24 hr tablet, TAKE 2 TABLETS BY MOUTH TWICE DAILY (Patient not taking: Reported on 03/19/2025), Disp: 360 tablet, Rfl: 3 Allergies Patient has no known allergies. Past Surgical History Past Surgical History: Procedure Laterality Date ESOPHAGOGASTRODUODENOSCOPY 08/23/2024 Family History Family History Problem Relation Name Age of Onset Diabetes Mother Cancer Mother Cancer Father Lung cancer Father Heart disease Other Glaucoma Other Hyperlipidemia Other Lung disease Other Diabetes Other Objective General Examination: GENERAL EXAMINATION: Alert and oriented. Pleasant disposition. FOOT EXAM: Date of Last Foot Exam 03/19/2025 Sensory testing performed: sensations normal Sensory and motor testing performed: strength diminished Pedal pulse taking performed: absent Vascular: DORSALIS PEDIS PULSE: faintly palpable, bilaterally. POSTERIOR TIBIAL PULSE: faintly palpable, bilaterally. TEMPERATURE GRADIENT: warm to cool. EDEMA: symmetrical, brawny edema bilateral lower extremities, ankles extending onto the dorsum of both feet; mildly inflamed and discolored, consistent with stasis dermatosis; without active dermatitis, erosion or stasis ulceration. Multiple scaly keratotic crusts and plaques, without drainage. CALF: supple , nontender , bilateral. CAPILLARY FILLING TIME(sec): capillary fill intact bilateral digits less than 3 secs. SHINY ATROPHIC SKIN: present. HAIR GROWTH: sparse. Neurologic: SHARP SENSATION: tactile and light touch sensation intact. SEMMES-CHARLIE 5.07 MONOFILAMENT: intact localization multiple points plantarly. Dermatologic: SKIN FINDINGS: skin turgor is fair. HYPERKERATOSIS: no forefoot or digital discrete keratotic lesions are noted. Diffuse keratosis along the rim of both heels; without fissuring. NAIL PATHOLOGY: All digits; none are spared; varying degrees of toenail dystrophy, thickening, elongation, mild clubbing, discoloration; several incurvating distally, indenting the soft tissue, without erosion or ulceration. No drainage is noted. Bilateral great toes: Pincer toenail deformity INGROWN NAIL PATHOLOGY: bilateral great toes. MYCOSIS SCALE: total with debris; several digits. INTERDIGITAL MACERATION:clean, dry, non-inflamed. ULCER:no sign of ulceration or open wound. Orthopedic: JOINT RANGE OF MOTION:limited but functional ankle, subtalar and first MTP joint range of motion. MUSCLE STRENGTH: no focal deficits. Radiology: Assessment/Plan Symptomatic onychodystrophy/mycosis multiple digits. Type II diabetes. Diabetic peripheral vasculopathy (Q8). Chronic venous insufficiency(Q8). Plan: Notes: patient remains well satisfied with a conservative and palliative care approach; again expressing no interest in oral therapy; topical therapy is difficult due to flexibility and mobility restraints. Diabetic education and assessment relative to the high risk condition. Encourage elevation and use of gradient compression socks. Hygiene and skin care measures discussed. Encourage AmLactin lotion daily. Procedure: Toenail Debridement: Aseptic technique: power/manual instrumentation: onychodebridement length and thickness, curretage of offending crypotic margins, allegra-ungual debris, providing effective pressure and symptom relief, reducing shoe and digital trauma; reducing potential risks associated with the diabetic vasculopathic condition and related complications. This note was created with the assistance of a speech recognition program. While intending to generate a timely document that accurately reflects the content of the visit, no guarantee can be provided that every grammatical or spelling mistake has been or will be identified or corrected. Thank you for your understanding. Arcenio Peñaloza DPM documented in this encounter [facility] 02-21-2025 History of Presen t illness Narrative Associated Problem(s): Type 2 diabetes mellitus with hyperglycemia, without long-term current use of insulin (HCC) Not checking BS and due for A1C. Stick to ADA diet and limit carbs. Associated Problem(s): Class 3 severe obesity due to excess calories with serious comorbidity and body mass index (BMI) of 40.0 to 44.9 in adult ([facility]) Weight loss indicated. Associated Problem(s): Benign essential hypertension BP elevated today but previously controlled and monitor PRN. Images from the original note were not included. Subjective Patient ID: Mohit Arboleda is a 74 y.o. male who presents for Follow-up (6m). Follow up DM, HTN, and weight. Patient feels well today. Not checking BS away from office and due for A1C. Tries to eat well and stick to ADA diet. Denies signs of elevated BS such as polyuria, polyphagia or polydipsia. Not checking BP away from office and elevated today. Taking medication daily and tolerating without side effects. BP normal on prior visits. Weight unchanged. Tries to stay active around house but no exercise. Review of Systems Constitutional: Negative for fatigue. Respiratory: Negative for cough, shortness of breath and wheezing. Cardiovascular: Negative for chest pain and palpitations. Gastrointestinal: Negative for abdominal pain, diarrhea, nausea and vomiting. Genitourinary: Negative for dysuria. Objective Physical Exam Constitutional: General: He is not in acute distress. Appearance: Normal appearance. HENT: Head: Normocephalic. Right Ear: Tympanic membrane and ear canal normal. Left Ear: Tympanic membrane and ear canal normal. Eyes: Extraocular Movements: Extraocular movements intact. Pupils: Pupils are equal, round, and reactive to light. Cardiovascular: Rate and Rhythm: Normal rate and regular rhythm. Heart sounds: No murmur heard. No friction rub. No gallop. Pulmonary: Breath sounds: Normal breath sounds. No wheezing, rhonchi or rales. Abdominal: General: Bowel sounds are normal. There is no distension. Palpations: Abdomen is soft. Tenderness: There is no abdominal tenderness. There is no guarding or rebound. Musculoskeletal: Left lower leg: No edema. Neurological: Mental Status: He is alert. Assessment/Plan Problem List Items Addressed This Visit Type 2 diabetes mellitus with hyperglycemia, without long-term current use of insulin ([facility]) - Primary Not checking BS and due for A1C. Stick to ADA diet and limit carbs. Relevant Orders Microalbumin / creatinine, urine ratio Hemoglobin A1c Dyslipidemia Relevant Orders Lipid panel Benign essential hypertension BP elevated today but previously controlled and monitor PRN. Relevant Orders Basic metabolic panel Screening PSA (prostate specific antigen) Relevant Orders PSA Encounter for long-term (current) use of medications Relevant Orders CBC and differential Hepatic function panel Class 3 severe obesity due to excess calories with serious comorbidity and body mass index (BMI) of 40.0 to 44.9 in adult ([facility]) Weight loss indicated. Relevant Orders TSH documented in this encounter [facility] 12-05-2024 History of Presen t illness Narrative Images from the original note were not included. Subjective Patient ID: Mohit Arboleda is a 74 y.o. male who presents for DM Foot Care (Established pt presents today for DM nail care. PCP: Dr. Marie PIERRE 08/24/24, A1C: 8.1, BS: n/a, SS: 11). HPI HPI Onychomycosis/Toenail Fungus: Symptomatic toenail deformity. Requesting nail care. Location: Identifies multiple digits with thickened, deformed and discolored toenails; all are problematic/symptomatic. Duration: chronic toenail deformity, multiple years duration. Severity of symptoms: mild-moderate; impacting his ability to wear shoes comfortably. Onset: gradual, without known injury or trauma. Status: problematic/symptomatic over the past several weeks or so. Context: hard to trim, hard to reach; self-care is difficult, ineffective and not practical; significantly increasing risk exposure. His spouse and/or family members are unable to provide effective care. Characteristics: discolored, thickened, pain , pressure , elongated , /lifting , ingrowing , crusty; without bleeding or drainage. Relieved by: palliative care measures have provided favorable transient symptom relief. Previous Treatment: palliative care measures as noted. Risk factors: Medical comorbidities. Type II diabetes. Chronic venous insufficiency/lower extremity swelling. Mobility, flexibility and dexterity restraints. Toenail deformity. Digital and/or shoe trauma and related complications. Aggravated by: shoe gear , pressure , walking; catching and snagging on clothing etc.. Medications Current Outpatient Medications: albuterol HFA 90 mcg/act inhaler, Inhale 2 puffs every 4 (four) hours if needed for wheezing, Disp: , Rfl: glipiZIDE (Glucotrol) 10 MG tablet, TAKE 1 TABLET BY MOUTH TWICE DAILY, Disp: 180 tablet, Rfl: 3 lisinopril 20 MG tablet, TAKE 1 TABLET BY MOUTH DAILY, Disp: 90 tablet, Rfl: 3 metFORMIN (Glucophage) 500 MG tablet, Take 500 mg by mouth in the morning. Take with meals., Disp: , Rfl: metFORMIN XR (Glucophage-XR) 500 MG 24 hr tablet, TAKE 2 TABLETS BY MOUTH TWICE DAILY, Disp: 360 tablet, Rfl: 3 omeprazole (PriLOSEC) [address] capsule, Take 1 capsule (40 mg) by mouth in the morning and 1 capsule (40 mg) in the evening. Take before meals., Disp: 180 capsule, Rfl: 3 pioglitazone (Actos) 45 MG tablet, Take 1 tablet (45 mg) by mouth Daily, Disp: 90 tablet, Rfl: 3 simvastatin (Zocor) 20 MG tablet, TAKE 1 TABLET BY MOUTH AT BEDTIME, Disp: 90 tablet, Rfl: 3 Allergies Patient has no known allergies. Past Surgical History Past Surgical History: Procedure Laterality Date ESOPHAGOGASTRODUODENOSCOPY 08/23/2024 Family History Family History Problem Relation Name Age of Onset Diabetes Mother Cancer Mother Cancer Father Lung cancer Father Heart disease Other Glaucoma Other Hyperlipidemia Other Lung disease Other Diabetes Other Objective General Examination: GENERAL EXAMINATION: Alert and oriented. Pleasant disposition. FOOT EXAM: Date of Last Foot Exam 12/05/2024 Sensory testing performed: sensations normal Sensory and motor testing performed: strength diminished Pedal pulse taking performed: absent Vascular: DORSALIS PEDIS PULSE: faintly palpable, bilaterally. POSTERIOR TIBIAL PULSE: faintly palpable, bilaterally. TEMPERATURE GRADIENT: warm to cool. EDEMA: symmetrical, brawny edema bilateral lower extremities, ankles extending onto the dorsum of both feet; mildly inflamed and discolored, consistent with stasis dermatosis; without active dermatitis, erosion or stasis ulceration. Multiple scaly keratotic crusts and plaques, without drainage. CALF: supple , nontender , bilateral. CAPILLARY FILLING TIME(sec): capillary fill intact bilateral digits less than 3 secs. SHINY ATROPHIC SKIN: present. HAIR GROWTH: sparse. Neurologic: SHARP SENSATION: tactile and light touch sensation intact. SEMMES-CHARLIE 5.07 MONOFILAMENT: intact localization multiple points plantarly. Dermatologic: SKIN FINDINGS: skin turgor is fair. HYPERKERATOSIS: no forefoot or digital discrete keratotic lesions are noted. Diffuse keratosis along the rim of both heels; without fissuring. NAIL PATHOLOGY: All digits; none are spared; varying degrees of toenail dystrophy, thickening, elongation, mild clubbing, discoloration; several incurvating distally, indenting the soft tissue, without erosion or ulceration. No drainage is noted. Bilateral great toes: Pincer toenail deformity INGROWN NAIL PATHOLOGY: bilateral great toes. MYCOSIS SCALE: total with debris; several digits. INTERDIGITAL MACERATION:clean, dry, non-inflamed. ULCER:no sign of ulceration or open wound. Orthopedic: JOINT RANGE OF MOTION:limited but functional ankle, subtalar and first MTP joint range of motion. MUSCLE STRENGTH: no focal deficits. Radiology: Assessment/Plan Symptomatic onychodystrophy/mycosis multiple digits. Type II diabetes. Diabetic peripheral vasculopathy (Q8). Chronic venous insufficiency(Q8). Plan: Notes: patient remains well satisfied with a conservative and palliative care approach; again expressing no interest in oral therapy; topical therapy is difficult due to flexibility and mobility restraints. Diabetic education and assessment relative to the high risk condition. Encourage elevation and use of gradient compression socks. Hygiene and skin care measures discussed. Encourage AmLactin lotion daily. Procedure: Toenail Debridement: Aseptic technique: power/manual instrumentation: onychodebridement length and thickness, curretage of offending crypotic margins, allegra-ungual debris, providing effective pressure and symptom relief, reducing shoe and digital trauma; reducing potential risks associated with the diabetic vasculopathic condition and related complications. This note was created with the assistance of a speech recognition program. While intending to generate a timely document that accurately reflects the content of the visit, no guarantee can be provided that every grammatical or spelling mistake has been or will be identified or corrected. Thank you for your understanding. Arcenio Peñaloza DPM documented in this encounter [facility] 12-05-2024 Instructions Arcenio Peñaloza DPM - 12/05/2024 10:45 AM EDT As noted documented in this encounter [facility] 09-03-2024 Miscellaneous Notes ----- Message from Dr. Faby Draper DO sent at 09/03/2024 7:15 AM EST ----- Please call patient and let him know that he had mild duodenitis and reactive gastropathy for which I recommend he continue to take his omeprazole 40 mg twice daily if that controls his symptoms if not let me know and I will prescribe Carafate on top of that. He should avoid a lot of alcohol caffeine or nonsteroidal anti-inflammatory drugs. He also had precancerous polyps and I recommend repeat colonoscopy in 5 years for surveillance. Thanks, Dr. Irving Spoke with patient regarding pathology results. Patient verbally understood with no further questions. Recall to be put in chart. documented in this encounter [facility] [employer] [facility] 09-03-2024 Telephone encounter Note ----- Message from Dr. Faby Drpaer DO sent at 09/03/2024 7:15 AM EST ----- Please call patient and let him know that he had mild duodenitis and reactive gastropathy for which I recommend he continue to take his omeprazole 40 mg twice daily if that controls his symptoms if not let me know and I will prescribe Carafate on top of that. He should avoid a lot of alcohol caffeine or nonsteroidal anti-inflammatory drugs. He also had precancerous polyps and I recommend repeat colonoscopy in 5 years for surveillance. Thanks, Dr. Irving [facility] 09-03-2024 Telephone encounter Note Spoke with patient regarding pathology results. Patient verbally understood with no further questions. Recall to be put in chart. [facility] History of Presen t illness Narrative Images from the original note were not included. Subjective Patient ID: Mohit Arboleda is a 74 y.o. male who presents for DM Foot Care (Pt and his spouse are here today requesting diabetic foot care/BS: 145 A1C: 8.1/LV Dr. Salazar 08-24-2024/SS: 11). HPI HPI Onychomycosis/Toenail Fungus: Symptomatic toenail deformity. Requesting nail care. Location: identifies multiple digits with thickened, deformed and discolored toenails; all are problematic/symptomatic. Duration: chronic toenail deformity, multiple years duration. Severity of symptoms: mild-moderate; impacting his ability to wear shoes comfortably. Onset: gradual, without known injury or trauma. Status: problematic/symptomatic over the past several weeks or so. Context: hard to trim, hard to reach; self-care is difficult, ineffective and not practical; significantly increasing risk exposure. His spouse and/or family members are unable to provide effective care. Characteristics: discolored, thickened, pain , pressure , elongated , /lifting , ingrowing , crusty; without bleeding or drainage. Relieved by: palliative care measures have provided favorable transient symptom relief. Previous Treatment: palliative care measures as noted. Risk factors: medical comorbidities. Type II diabetes. Chronic venous insufficiency/lower extremity swelling. mobility, flexibility and dexterity restraints. Toenail deformity. Digital and/or shoe trauma and related complications. Aggravated by: shoe gear , pressure , walking; catching and snagging on clothing etc.. Medications Current Outpatient Medications: albuterol HFA 90 mcg/act inhaler, Inhale 2 puffs every 4 (four) hours if needed for wheezing, Disp: , Rfl: glipiZIDE (Glucotrol) 10 MG tablet, TAKE 1 TABLET BY MOUTH TWICE DAILY, Disp: 180 tablet, Rfl: 3 lisinopril 20 MG tablet, TAKE 1 TABLET BY MOUTH DAILY, Disp: 90 tablet, Rfl: 3 metFORMIN (Glucophage) 500 MG tablet, Take 500 mg by mouth in the morning. Take with meals., Disp: , Rfl: metFORMIN XR (Glucophage-XR) 500 MG 24 hr tablet, TAKE 2 TABLETS BY MOUTH TWICE DAILY, Disp: 360 tablet, Rfl: 3 omeprazole (PriLOSEC) [address] capsule, Take 40 mg by mouth in the morning and 40 mg in the evening., Disp: , Rfl: pioglitazone (Actos) 45 MG tablet, Take 1 tablet (45 mg) by mouth Daily, Disp: 90 tablet, Rfl: 3 simvastatin (Zocor) 20 MG tablet, TAKE 1 TABLET BY MOUTH AT BEDTIME, Disp: 90 tablet, Rfl: 3 Allergies Patient has no known allergies. Past Surgical History Past Surgical History: Procedure Laterality Date ESOPHAGOGASTRODUODENOSCOPY 08/23/2024 Family History Family History Problem Relation Name Age of Onset Diabetes Mother Cancer Mother Cancer Father Lung cancer Father Heart disease Other Glaucoma Other Hyperlipidemia Other Lung disease Other Diabetes Other Objective General Examination: GENERAL EXAMINATION: alert and oriented. Pleasant disposition. FOOT EXAM: Date of Last Foot Exam 08/29/2024 Sensory testing performed: sensations normal Sensory and motor testing performed: strength diminished Pedal pulse taking performed: absent Vascular: DORSALIS PEDIS PULSE: faintly palpable, bilaterally. POSTERIOR TIBIAL PULSE: faintly palpable, bilaterally. TEMPERATURE GRADIENT: warm to cool. EDEMA: symmetrical, brawny edema bilateral lower extremities, ankles extending onto the dorsum of both feet; mildly inflamed and discolored, consistent with stasis dermatosis; without active dermatitis, erosion or stasis ulceration. Multiple scaly keratotic crusts and plaques, without drainage. CALF: supple , nontender , bilateral. CAPILLARY FILLING TIME(sec): capillary fill intact bilateral digits less than 3 secs. SHINY ATROPHIC SKIN: present. HAIR GROWTH: sparse. Neurologic: SHARP SENSATION: tactile and light touch sensation intact. SEMMES-CHARLIE 5.07 MONOFILAMENT: intact localization multiple points plantarly. Dermatologic: SKIN FINDINGS: skin turgor is fair. HYPERKERATOSIS: no forefoot or digital discrete keratotic lesions are noted. Diffuse keratosis along the rim of both heels; without fissuring. NAIL PATHOLOGY: All digits; none are spared; varying degrees of toenail dystrophy, thickening, elongation, mild clubbing, discoloration; several incurvating distally, indenting the soft tissue, without erosion or ulceration. No drainage is noted. Bilateral great toes: Pincer toenail deformity INGROWN NAIL PATHOLOGY: bilateral great toes. MYCOSIS SCALE: total with debris; several digits. INTERDIGITAL MACERATION:clean, dry, non-inflamed. ULCER:no sign of ulceration or open wound. Orthopedic: JOINT RANGE OF MOTION:limited but functional ankle, subtalar and first MTP joint range of motion. MUSCLE STRENGTH: no focal deficits. Radiology: Assessment/Plan Symptomatic onychodystrophy/mycosis multiple digits. Type II diabetes. Diabetic peripheral vasculopathy (Q8). Chronic venous insufficiency(Q8). Plan: Notes: patient remains well satisfied with a conservative and palliative care approach; again expressing no interest in oral therapy; topical therapy is difficult due to flexibility and mobility restraints. Diabetic education and assessment relative to the high risk condition. Encourage elevation and use of gradient compression socks. Hygiene and skin care measures discussed. Recommend AmLactin lotion daily. Procedure: Toenail Debridement: Aseptic technique: power/manual instrumentation: onychodebridement length and thickness, curretage of offending crypotic margins, allegra-ungual debris, providing effective pressure and symptom relief, reducing shoe and digital trauma; reducing potential risks associated with the diabetic vasculopathic condition and related complications. This note was created with the assistance of a speech recognition program. While intending to generate a timely document that accurately reflects the content of the visit, no guarantee can be provided that every grammatical or spelling mistake has been or will be identified or corrected. Thank you for your understanding. Arcenio Peñaloza DPM documented in this encounter [facility] 08-29-2024 Instructions Arcenio Peñaloza DPM - 08/29/2024 10:45 AM EST As noted documented in this encounter [facility] 08-24-2024 History of Presen t illness Narrative Associated Problem(s): Medicare annual wellness visit, subsequent Reviewed labs. Discussed proper diet and regular aerobic exercise. Need aerobic exercise 5-6 days a week for 30 minutes at a time. Smaller portions and limit total calories. Colonoscopy every 10 years. Tetanus every 10 years. Advised not to smoke. Images from the original note were not included. Subjective Patient ID: Mohit Arboleda is a 74 y.o. male who presents for Medicare Annual Wellness Visit Subsequent (Wellness/). Presents for medicare annual wellness visit. Weight up 5 pounds in the past year. Tries to stay active around the house but no regular exercise. Tries to watch diet and eat healthy. Increased fruits and vegetables. Smaller portions and limits snacking. Tries to limit total daily calories. Reviewed labs. Colonoscopy with polyps yesterday. Review of Systems Constitutional: Negative for fatigue. Respiratory: Negative for cough, shortness of breath and wheezing. Cardiovascular: Negative for chest pain and palpitations. Gastrointestinal: Negative for abdominal pain, diarrhea, nausea and vomiting. Genitourinary: Negative for dysuria. Objective Physical Exam Constitutional: General: He is not in acute distress. Appearance: Normal appearance. HENT: Head: Normocephalic. Right Ear: Tympanic membrane and ear canal normal. Left Ear: Tympanic membrane and ear canal normal. Eyes: Extraocular Movements: Extraocular movements intact. Pupils: Pupils are equal, round, and reactive to light. Cardiovascular: Rate and Rhythm: Normal rate and regular rhythm. Heart sounds: No murmur heard. No friction rub. No gallop. Pulmonary: Breath sounds: Normal breath sounds. No wheezing, rhonchi or rales. Abdominal: General: Bowel sounds are normal. There is no distension. Palpations: Abdomen is soft. Tenderness: There is no abdominal tenderness. There is no guarding or rebound. Musculoskeletal: General: Normal range of motion. Left lower leg: No edema. Neurological: General: No focal deficit present. Mental Status: He is alert. Cranial Nerves: No cranial nerve deficit. Deep Tendon Reflexes: Reflexes normal. Assessment/Plan Problem List Items Addressed This Visit Medicare annual wellness visit, subsequent - Primary Reviewed labs. Discussed proper diet and regular aerobic exercise. Need aerobic exercise 5-6 days a week for 30 minutes at a time. Smaller portions and limit total calories. Colonoscopy every 10 years. Tetanus every 10 years. Advised not to smoke. documented in this encounter [facility] 07-30-2024 History of Presen t illness Narrative Images from the original note were not included. Chief Complaint: Positive Cologuard History of Present Illness Mohit Arboleda is a 73 y.o. male who presents to the office for positive Cologuard. He has never had a colonoscopy. He denies diarrhea, constipation, abdominal pain, melena, hematochezia, unexplained weight loss. There is no family history of colon cancer. There is a family history of stomach cancer in his mother. Review of Systems Constitutional: Negative for fever and unexpected weight change. HENT: Negative for trouble swallowing. Respiratory: Negative for shortness of breath. Cardiovascular: Negative for chest pain. Gastrointestinal: Negative for nausea, vomiting, abdominal pain, diarrhea, constipation, blood in stool and black tarry stool. Genitourinary: Negative for dysuria and difficulty urinating. Musculoskeletal: Negative for gait problem. Skin: Negative for rash and wound. Neurological: Negative for dizziness, weakness and light-headedness. Hematological: Does not bruise/bleed easily. Psychiatric/Behavioral: Negative for confusion. Past Medical History: Diagnosis Date Diabetes mellitus ([facility]) Hyperlipidemia Hypertension Past Surgical History: Procedure Laterality Date PROSTHODONTIC PROCEDURE FULL UPPER, PARTIAL LOWER Allergies Allergen Reactions No Known Drug Allergies Current Outpatient Medications: glipiZIDE (GLUCOTROL) 10 mg tablet, Take 1 tablet (10 mg total) by mouth in the morning and 1 tablet (10 mg total) in the evening. Take before meals., Disp: , Rfl: lisinopril (PRINIVIL,ZESTRIL) 20 mg tablet, Take 1 tablet (20 mg total) by mouth in the morning., Disp: , Rfl: metFORMIN (GLUCOPHAGE) 500 mg tablet, Take 1 tablet (500 mg total) by mouth in the morning and 1 tablet (500 mg total) in the evening. Take with meals., Disp: , Rfl: simvastatin (ZOCOR) 20 mg tablet, Take 1 tablet (20 mg total) by mouth nightly., Disp: , Rfl: peg 3350-sod sulf,[id number] 178.7-7.3-0.5 gram recon soln, Take 1 kit by mouth once daily for 1 dose. Please see instructional sheet given by physicians office., Disp: 1 each, Rfl: 0 Social History Socioeconomic History Marital status: Spouse name: Not on file Number of children: Not on file Years of education: Not on file Highest education level: Not on file Occupational History Not on file Tobacco Use Smoking status: Every Day Types: Vaping/E-cigarettes , Cigarettes Start date: 1972 Smokeless tobacco: Never Vaping Use Vaping status: Every Day Substances: Nicotine Substance and Sexual Activity Alcohol use: Not Currently Drug use: No Sexual activity: Defer Other Topics Concern Not on file Social History Narrative Not on file Social Drivers of Health Financial Resource Strain: Not on file Food Insecurity: Not on file Transportation Needs: Not on file Physical Activity: Not on file Stress: Not on file Social Connections: Not on file Interpersonal Safety: Not on file Housing Instability: Not on file Family History Problem Relation Age of Onset Cancer Mother Kidney disease Mother Diabetes Mother Stomach cancer Mother Cancer Father LUNG Stroke Maternal Grandmother Objective Physical Exam Constitutional: General: He is not in acute distress. Appearance: Normal appearance. He is not ill-appearing. HENT: Head: Normocephalic and atraumatic. Mouth/Throat: Mouth: Mucous membranes are moist. Eyes: Pupils: Pupils are equal, round, and reactive to light. Cardiovascular: Rate and Rhythm: Normal rate. Pulmonary: Effort: Pulmonary effort is normal. No respiratory distress. Abdominal: General: There is no distension. Musculoskeletal: General: Normal range of motion. Skin: General: Skin is warm and dry. Neurological: Mental Status: He is alert and oriented to person, place, and time. Mental status is at baseline. Vital Signs: Blood pressure 166/83, pulse 82, height 177.8 cm (5' 10 ), weight (S) (!) 141 kg (310 lb 12.8 oz). Respiratory Source: No data recorded Admission Weight: Weight: (S) (!) 141 kg (310 lb 12.8 oz) Labs Lab Results Component Value Date WBC 9.4 11/04/2019 HGB 16.2 11/04/2019 HCT 47.2 11/04/2019 MCV 85 11/04/2019 PLT 213 11/04/2019 Lab Results Component Value Date GLU 265 (H) 11/04/2019 CALCIUM 8.9 11/04/2019 K 4.0 11/04/2019 CO2 25 11/04/2019 CL 99 11/04/2019 BUN 10 11/04/2019 CREATININE 0.72 11/04/2019 No results found for: AMYLASE No results found for: LIPASE Lab Results Component Value Date ALT 61 (A) 09/17/2015 AST 38 09/17/2015 No results found for: INR , PROTIME Assessment Positive Cologuard Family history of stomach cancer in mother Plan EGD and colonoscopy with possible biopsy and/or polypectomy. Risks, benefits, and alternatives discussed with patient. Educated on bowel evacuation preparation. Patient verbalizes understanding and wishes to proceed. Evaluation included: Preparing to see the patient (e.g., review of tests) Obtaining and/or reviewing separately obtained history Performing a medically appropriate examination and/or evaluation Counseling and educating the patient/family/caregiver Referring and communicating with other health assisted living care manager Positive colorectal cancer screening using Cologuard test [R19.5] MARKELL BAILON, FOOD AND BEVERAGE CASHIER-OFFICE MANAGER [facility] This note was created with the assistance of a speech recognition program. While intending to generate a timely document that accurately reflects the content of the visit, no guarantee can be provided that every grammatical or spelling mistake has been or will be identified or corrected. Thank you for your understanding. ROBERT Aguila 07/30/24 1142 documented in this encounter [facility] 05-29-2024 History of Presen t illness Narrative Images from the original note were not included. Subjective Patient ID: Mohit Arboleda is a 73 y.o. male who presents for DM Foot Care (Pt presents today with his spouse for nail care. He states nails become painful as they grow out. /BS: 150? A1C: 7.5/Lv Dr. Salazar 05-16-2024/SS: 11). HPI HPI Onychomycosis/Toenail Fungus: Symptomatic toenail deformity. Requesting nail care. Location: identifies multiple digits with thickened, deformed and discolored toenails; all are problematic/symptomatic. Duration: chronic toenail deformity, multiple years duration. Severity of symptoms: mild-moderate; impacting his ability to wear shoes comfortably. Onset: gradual, without known injury or trauma. Status: problematic/symptomatic over the past several weeks or so. Context: hard to trim, hard to reach; self-care is difficult, ineffective and not practical; significantly increasing risk exposure. His spouse and/or family members are unable to provide effective care. Characteristics: discolored, thickened, pain , pressure , elongated , /lifting , ingrowing , crusty; without bleeding or drainage. Relieved by: palliative care measures have provided favorable transient symptom relief. Previous Treatment: palliative care measures as noted. Risk factors: medical comorbidities. Type II diabetes. Chronic venous insufficiency/lower extremity swelling. mobility, flexibility and dexterity restraints. Toenail deformity. Digital and/or shoe trauma and related complications. Aggravated by: shoe gear , pressure , walking; catching and snagging on clothing etc.. Medications Current Outpatient Medications: albuterol HFA 90 mcg/act inhaler, Inhale 2 puffs every 4 (four) hours if needed for wheezing, Disp: , Rfl: glipiZIDE (Glucotrol) 10 MG tablet, TAKE 1 TABLET BY MOUTH TWICE DAILY, Disp: 180 tablet, Rfl: 3 lisinopril 20 MG tablet, TAKE 1 TABLET BY MOUTH DAILY, Disp: 90 tablet, Rfl: 3 metFORMIN (Glucophage) 500 MG tablet, Take 500 mg by mouth in the morning. Take with meals., Disp: , Rfl: metFORMIN XR (Glucophage-XR) 500 MG 24 hr tablet, TAKE 2 TABLETS BY MOUTH TWICE DAILY, Disp: 360 tablet, Rfl: 3 pioglitazone (Actos) 30 MG tablet, Take 1 tablet (30 mg) by mouth Daily, Disp: 90 tablet, Rfl: 3 simvastatin (Zocor) 20 MG tablet, TAKE 1 TABLET BY MOUTH AT BEDTIME, Disp: 90 tablet, Rfl: 3 Allergies Patient has no known allergies. Past Surgical History No past surgical history on file. Family History Family History Problem Relation Name Age of Onset Diabetes Mother Cancer Mother Cancer Father Lung cancer Father Heart disease Other Glaucoma Other Hyperlipidemia Other Lung disease Other Diabetes Other Objective General Examination: GENERAL EXAMINATION: alert and oriented. Pleasant disposition. FOOT EXAM: Date of Last Foot Exam 05/29/2024 Sensory testing performed: sensations normal Sensory and motor testing performed: strength diminished Pedal pulse taking performed: absent Vascular: DORSALIS PEDIS PULSE: faintly palpable, bilaterally. POSTERIOR TIBIAL PULSE: faintly palpable, bilaterally. TEMPERATURE GRADIENT: warm to cool. EDEMA: symmetrical, brawny edema bilateral lower extremities, ankles extending onto the dorsum of both feet; mildly inflamed and discolored, consistent with stasis dermatosis; without active dermatitis, erosion or stasis ulceration. Multiple scaly keratotic crusts and plaques, without drainage. CALF: supple , nontender , bilateral. CAPILLARY FILLING TIME(sec): capillary fill intact bilateral digits less than 3 secs. SHINY ATROPHIC SKIN: present. HAIR GROWTH: sparse. Neurologic: SHARP SENSATION: tactile and light touch sensation intact. SEMMES-CHARLIE 5.07 MONOFILAMENT: intact localization multiple points plantarly. Dermatologic: SKIN FINDINGS: skin turgor is fair. HYPERKERATOSIS: no forefoot or digital discrete keratotic lesions are noted. Diffuse keratosis along the rim of both heels; without fissuring. NAIL PATHOLOGY: All digits; none are spared; varying degrees of toenail dystrophy, thickening, elongation, mild clubbing, discoloration; several incurvating distally, indenting the soft tissue, without erosion or ulceration. No drainage is noted. Bilateral great toes: Pincer toenail deformity INGROWN NAIL PATHOLOGY: bilateral great toes. MYCOSIS SCALE: total with debris; several digits. INTERDIGITAL MACERATION:clean, dry, non-inflamed. ULCER:no sign of ulceration or open wound. Orthopedic: JOINT RANGE OF MOTION:limited but functional ankle, subtalar and first MTP joint range of motion. MUSCLE STRENGTH: no focal deficits. Radiology: Assessment/Plan Symptomatic onychodystrophy/mycosis multiple digits. Type II diabetes. Diabetic peripheral vasculopathy (Q8). Chronic venous insufficiency(Q8). Plan: Notes: patient remains well satisfied with a conservative and palliative care approach; again expressing no interest in oral therapy; topical therapy is difficult due to flexibility and mobility restraints. Diabetic education and assessment relative to the high risk condition. Encourage elevation and use of gradient compression socks. Hygiene and skin care measures discussed. Recommend AmLactin lotion daily. Procedure: Toenail Debridement: Aseptic technique: power/manual instrumentation: onychodebridement length and thickness, curretage of offending crypotic margins, allegra-ungual debris, providing effective pressure and symptom relief, reducing shoe and digital trauma; reducing potential risks associated with the diabetic vasculopathic condition and related complications. This note was created with the assistance of a speech recognition program. While intending to generate a timely document that accurately reflects the content of the visit, no guarantee can be provided that every grammatical or spelling mistake has been or will be identified or corrected. Thank you for your understanding. Arcenio Peñaloza DPM documented in this encounter [facility] [place] 05-29-[facility]24 Instructions Arcenio Peñaloza DPM - 05/29/2024 11:00 AM EDT As noted documented in this encounter [facility] [place] 05-16-2024 History of Presen t illness Narrative Associated Problem(s): Type 2 diabetes mellitus with hyperglycemia, without long-term current use of insulin ([facility]) Not checking BS and due for A1C. Stick to ADA diet and limit carbs. Associated Problem(s): Morbid obesity due to excess calories (CMS/HCC) Weight loss indicated. Associated Problem(s): Benign essential hypertension (CMS/HCC) BP controlled and monitor PRN. Images from the original note were not included. Subjective Patient ID: Mohit Arboleda is a 73 y.o. male who presents for Follow-up (6 m). Follow up DM, HTN, and weight. Patient feels well today. Not checking BS away from office. Tries to eat well and stick to ADA diet. Denies signs of elevated BS such as polyuria, polyphagia or polydipsia. Last A1C 7.5 in September. Checking BP PRN and typically controlled. BP normal today. Taking medication daily and tolerating without side effects. Weight up 5 pounds. Not active and no regular exercise or activity. Review of Systems Constitutional: Negative for fatigue. Respiratory: Negative for cough, shortness of breath and wheezing. Cardiovascular: Negative for chest pain and palpitations. Gastrointestinal: Negative for abdominal pain, diarrhea, nausea and vomiting. Genitourinary: Negative for dysuria. Objective Physical Exam Constitutional: General: He is not in acute distress. Appearance: Normal appearance. HENT: Head: Normocephalic. Right Ear: Tympanic membrane and ear canal normal. Left Ear: Tympanic membrane and ear canal normal. Eyes: Extraocular Movements: Extraocular movements intact. Pupils: Pupils are equal, round, and reactive to light. Cardiovascular: Rate and Rhythm: Normal rate and regular rhythm. Heart sounds: No murmur heard. No friction rub. No gallop. Pulmonary: Breath sounds: Normal breath sounds. No wheezing, rhonchi or rales. Abdominal: General: Bowel sounds are normal. There is no distension. Palpations: Abdomen is soft. Tenderness: There is no abdominal tenderness. There is no guarding or rebound. Musculoskeletal: Left lower leg: No edema. Neurological: Mental Status: He is alert. Assessment/Plan Problem List Items Addressed This Visit Type 2 diabetes mellitus with hyperglycemia, without long-term current use of insulin (CMS/HCC) - Primary Not checking BS and due for A1C. Stick to ADA diet and limit carbs. Relevant Medications pioglitazone (Actos) 30 MG tablet Other Relevant Orders Hemoglobin A1c Benign essential hypertension (CMS/HCC) BP controlled and monitor PRN. Morbid obesity due to excess calories ([facility]/HCC) Weight loss indicated. Other Visit Diagnoses Colon cancer screening Relevant Orders Cologuard colon cancer screening documented in this encounter [facility] note Diagnosis Type 2 diabetes mellitus with hyperglycemia, without long-term current use of insulin (CMS/HCC) [facility] Diagnosis Type 2 diabetes mellitus with hyperglycemia, without long-term current use of insulin ([facility]/HCC)- Primary Benign essential hypertension (CMS/HCC) Essential hypertension, benign Colon cancer screening Special screening for malignant neoplasms, colon Morbid obesity due to excess calories (CMS/HCC) Body mass index (BMI) 40.0-44.9, adult ([facility]) Positive colorectal cancer screening using Cologuard test- Primary [facility] Diagnosis Dermatophytosis of nail- Primary Dystrophic nail Other specified disease of nail Pain around toenail, right foot Pain around toenail, left foot [facility]* Diagnosis Type 2 diabetes mellitus with hyperglycemia, without long-term current use of insulin (CMS/HCC)- Primary Benign essential hypertension (CMS/HCC) Essential hypertension, benign Colon cancer screening Special screening for malignant neoplasms, colon Morbid obesity due to excess calories (CMS/HCC) Body mass index (BMI) 40.0-44.9, adult ([facility]) Medicare annual wellness visit, subsequent- Primary [facility]* Diagnosis Type 2 diabetes mellitus with hyperglycemia, without long-term current use of insulin (CMS/HCC)- Primary Benign essential hypertension (CMS/HCC) Essential hypertension, benign Colon cancer screening Special screening for malignant neoplasms, colon Morbid obesity due to excess calories (CMS/HCC) Body mass index (BMI) 40.0-44.9, adult ([facility]) Medicare annual wellness visit, subsequent- Primary Dermatophytosis of nail- Primary Dystrophic nail Other specified disease of nail Pain around toenail, right foot Pain around toenail, left foot documented in this encounter [facility]* Diagnosis Type 2 diabetes mellitus with hyperglycemia, without long-term current use of insulin ([facility])- Primary Benign essential hypertension ([facility]) Essential hypertension, benign Colon cancer screening Special screening for malignant neoplasms, colon Morbid obesity due to excess calories ([facility]) documented in this encounter [facility]* Diagnosis Positive colorectal cancer screening using Cologuard test- Primary Family history of stomach cancer Family history of malignant neoplasm of gastrointestinal tract [facility] Diagnosis Type 2 diabetes mellitus with hyperglycemia, without long-term current use of insulin ([facility])- Primary Benign essential hypertension ([facility]) Essential hypertension, benign Colon cancer screening Special screening for malignant neoplasms, colon Morbid obesity due to excess calories ([facility]) Body mass index (BMI) 40.0-44.9, adult ([facility]) Medicare annual wellness visit, subsequent- Primary Dermatophytosis of nail- Primary Dystrophic nail Other specified disease of nail Pain around toenail, right foot Pain around toenail, left foot documented in this encounter [facility]* Diagnosis Type 2 diabetes mellitus with hyperglycemia, without long-term current use of insulin ([facility])- Primary Benign essential hypertension Essential hypertension, benign Colon cancer screening Special screening for malignant neoplasms, colon Morbid obesity due to excess calories ([facility]) Body mass index (BMI) 40.0-44.9, adult ([facility]) Medicare annual wellness visit, subsequent- Primary Type 2 diabetes mellitus with hyperglycemia, without long-term current use of insulin ([facility])- Primary Benign essential hypertension Essential hypertension, benign Class 3 severe obesity due to excess calories with serious comorbidity and body mass index (BMI) of 40.0 to 44.9 in adult ([facility]) Dyslipidemia Other and unspecified hyperlipidemia Encounter for long-term (current) use of medications Encounter for long-term (current) use of other medications Screening PSA (prostate specific antigen) Special screening for malignant neoplasm of prostate documented in this encounter [facility]* Diagnosis Type 2 diabetes mellitus with hyperglycemia, without long-term current use of insulin (HCC)- Primary Benign essential hypertension Essential hypertension, benign Colon cancer screening Special screening for malignant neoplasms, colon Morbid obesity due to excess calories ([facility]) Body mass index (BMI) 40.0-44.9, adult ([facility]) Medicare annual wellness visit, subsequent- Primary Type 2 diabetes mellitus with hyperglycemia, without long-term current use of insulin (HCC)- Primary Benign essential hypertension Essential hypertension, benign Class 3 severe obesity due to excess calories with serious comorbidity and body mass index (BMI) of 40.0 to 44.9 in adult ([facility]) Dyslipidemia Other and unspecified hyperlipidemia Encounter for long-term (current) use of medications Encounter for long-term (current) use of other medications Screening PSA (prostate specific antigen) Special screening for malignant neoplasm of prostate Dermatophytosis of nail- Primary Dystrophic nail Other specified disease of nail Pain around toenail, right foot Pain around toenail, left foot [facility] on filedocumented in this encounter[facility] System[facility]ructionsNot on filedocumented in this [facility] [place] [facility] Purpose Family History No Family History [...] Records FoundNo Status Records FoundNo Status Records FoundNo Status Records FoundNo Status Records Found INFORMATION SOURCE (unrecogn ized section and content) DATE CREATED AUTHOR 10/06/2021 [facility] DATE CREATED AUTHOR AUTHOR'S ORGANIZ ATION 10/05/2022 [facility] DATE CREATED AUTHOR AUTHOR'S ORGANIZ ATION 08/01/2024 [facility] DATE CREATED AUTHOR AUTHOR'S ORGANIZ ATION 09/03/2024 [facility] DATE CREATED AUTHOR AUTHOR'S ORGANIZ ATION 03/23/2025 [facility] Care Teams (unrecognized sec tion and content) [employer] Programmer Relationship Specialty Start Date End Date Lj Salazar MD [address] [place] [address] PCP - General Family Medicine 10/17/23 [employer] Programmer Relationship Specialty Start Date End Date Lj Salazar MD [address] [place] [address] PCP - General Family Medicine 10/17/23 [employer] Programmer Relationship Specialty Start Date End Date Lj Salazar MD [address] [place] [address] PCP - General Family Medicine 10/17/23 [employer] Programmer Relationship Specialty Start Date End Date Lj Salazar MD [address] [place] [address] PCP - General Family Medicine 10/17/23 [employer] Programmer Relationship Specialty Start Date End Date Lj Salazar MD [address] [place] [address] PCP - General Family Medicine 10/17/23 Lj Salazar MD [address] [place] [address] PCP Jacinto Johns MA 07/13/24 [employer] Program[employer] Relationship Specialty Start Date End Date Lj Salazar MD [address] [place] [address] PCP - General Family Medicine 10/17/23 Lj Salazar MD [address] [place] [address] PCP Jacinto Johns MA 07/13/24 [employer] Programmer Relationship Specialty Start Date End Date Lj Salazar MD [address] [place] [address] PCP - General Family Medicine 10/17/23 Lj Salazar MD [address] [place] [address] PCP - Andreas CHILEL 07/13/24 [employer] Programmer Relationship Specialty Start Date End Date Lj Salazar MD [address] [place] [address] PCP - General Family Medicine 10/17/23 Lj Salazar MD [address] [place] [address] PCP - Andreas CHILEL 07/13/24 [employer] Programmer Relationship Specialty Start Date End Date Lj Salazar MD [address] [place] [address] PCP - General Family Medicine 10/17/23 [employer] Programmer Relationship Specialty Start Date End Date Lj Salazar MD [address] [place] [address] PCP - General Family Medicine 10/17/23 [employer] Programmer Relationship Specialty Start Date End Date Lj Salazar MD PCP - General Family Medicine 11/04/19 [employer] Program[employer] Relationship Specialty Start Date End Date Lj Salazar MD PCP - General Family Medicine 11/04/19 [employer] Programmer Relationship Specialty Start Date End Date Lj Salazar MD PCP - General Family Medicine 11/04/19 [employer] Programmer Relationship Specialty Start Date End Date Lj Salazar MD [address] [place] [address] PCP - General Family Medicine 10/17/23 Lj Salazar MD [address] [place] [address] PCP - Andreas CHILEL 07/13/24 [employer] Programmer Relationship Specialty Start Date End Date Lj Salazar MD [address] [place] [address] PCP - General Family Medicine 10/17/23 Lj Salazar MD [address] [place] [address] PCP - Andreas CHILEL 07/13/24 [employer] Programmer Relationship Specialty Start Date End Date Lj Salazar MD [address] [place] [address] PCP - General Family Medicine 10/17/23 Lj Salazar MD [address] [place] [address] PCP - Andreas CHILEL 07/13/24 [employer] Programmer Relationship Specialty Start Date End Date Lj Salazar MD [address] [place] [address] PCP - General Family Medicine 10/17/23 Lj Salazar MD [address] [place] [address] PCP - Andreas CHILEL 07/13/24 [employer] Program[employer] Relationship Specialty Start Date End Date Lj Salazar MD [address] [place] [address] PCP - General Family Medicine 10/17/23 Lj Salazar MD [address] [place] [address] PCP - Andreas CHILEL 07/13/24 Reason for Visit (unrecogniz ed section and content) Reason Comments DM Foot Care Pt presents today wi th his spouse for nail care. He states nails become painful as they grow out. BS: 150? A1C: 7.5Lv Dr. Salazar 05-16-2024SS: 11 Reason Comments Medicare Annual Wellness Visit Subsequen t Wellness Reason Comments DM Foot Care Pt and his spouse laith isaac here today requesting diabetic foot careBS: 145 A1C: 8.1LV Dr. Salazar [id number]: [id number] Reason Comments Follow-up 6 m Reason Comments Med Refill Reason Comments POSITIVE COLOGUARD POSITIVE COLOGUARD T EST REF BY DR. SALAZAR Specialty Diagnoses / Procedures Referred By Contac t Referred To Contact General Surgery Diagnoses Positive colorectal cancer screening using Cologuard test Procedures WA OFFICE OUTPATIENT VISIT 60-74 MINS HIGH MDM [id number] (SNOMED CT) - AMB REFERRAL TO GENERAL SURGERY Lj Salazar MD [address] [place] [address] Phone: tel: fax: Faby Draper DO [address] [place] [id number] Phone: tel: fax: Referral ID Status Reason Start Date Expiration Date Visits Re quested Visits Authorized [id number] Closed 06/27/2024 12/24/2024 1 1 Reason Comments DM Foot Care Established pt prese nts today for DM nail care. PCP: Dr. Marie PIERRE 08/24/24, A1C: 8.1, BS: n/a, SS: 11 Reason Comments Follow-up 6m Reason Comments DM Foot Care Established patient presents today with his for routine diabetic nail care. PCP: Dr. Marie PIERRE 02/21/25, A1C: 8.1 (06/2024), BS: hasn't checked FOR RECORDS PERTAINING TO PATIENTS WHO ARE [...] BE BASED ON THE PRIMARY CLINICAL RECORDS. [employer] provides no warranty or guarantee of the accuracy or completeness of information in this document.
[2025-05-10 09:30] LABS: Hematocrit 42.9 % (42.0-54.0); Hemoglobin 14.1 g/dL (14.0-18.0); Immature Granulocytes Abs Auto 0.05 10^3/uL (0.00-0.03); Immature Granulocytes Pct Auto 0.7 % (0.0-0.5); Lymphocytes Absolute Auto 1.4 10^3/uL (1.2-3.8); Mean Corpuscular HGB Conc 32.9 g/dL (29.9-35.2); Mean Corpuscular Hemoglobin 28.8 pg (25.9-34.0); Mean Corpuscular Volume 87.6 fL (80.0-94.0); Platelet Count 203 10^3/uL (150-450); Red Blood Count 4.90 10^6/uL (4.70-6.10); White Blood Count 6.8 10^3/uL (4.0-11.0)
[2025-05-10 11:00] LABS: Alanine Aminotransferase 43 U/L (16-63); Albumin Globulin Ratio 0.9; Albumin Level 3.5 g/dL (3.4-5.0); Alkaline Phosphatase 67 U/L (46-116); Anion Gap 10.6; Aspartate Amino Transferase 32 U/L (15-37); Blood Urea Nitrogen 5.0 mg/dL (7.0-18.0); Calcium 8.9 mg/dL (8.5-10.1); Carbon Dioxide 32.1 mmol/L (21.0-32.0); Chloride 102 mmol/L (98-107); Cholesterol 147 mg/dL (<=200); Estimated GFR (African America >60 (>=60 mL/min/1.73m^2); Estimated GFR (Non-African Ame >60 (>=60 mL/min/1.73m^2); Globulin 3.7 g/dL; Glucose 194 mg/dL (74-106); HDL Cholesterol 42 mg/dL (40-60); Potassium 4.7 mmol/L (3.5-5.1); Sodium 140 mmol/L (136-145); Thyroid Stimulating Hormone 1.170 uIU/mL (0.358-3.740); Total Protein 7.2 g/dL (6.4-8.2); Triglycerides 111 mg/dL (<=150); VLDL CHOLESTEROL 22.2 mg/dL
[2025-05-10 11:28] LABS: Microalbum Creatinine Ratio Ur 92.6 mg/g (0.0-29.9)
== END 2025-05-10 08:33 | disposition home or self-care (01) ==
LOC: LAB 08:33
PROVIDERS: PCP Family Medicine; Visit Provider Family Medicine
DX: E11.65 Type 2 diabetes mellitus with hyperglycemia (principal); I10 Essential (primary) hypertension; Z79.899 Other long term (current) drug therapy; E78.5 Hyperlipidemia, unspecified; Z12.5 Encounter for screening for malignant neoplasm of prostate; E66.813 Obesity, class 3; E66.01 Morbid (severe) obesity due to excess calories; Z68.41 Body mass index [BMI] 40.0-44.9, adult
CPT/HCPCS: 36415; 80048; 80061; 80076; 82043; 82570; 83036; 84443; 85025; G0103